=== PATIENT | male | born 1955 | race Caucasian/White ===

== ENCOUNTER 2024-07-23 19:05 | Inpatient (IN) | payer MEDICARE, OTHER ==
--- NOTE | 2024-07-23 19:22 | ED ---
General Adult HPI - General Chief complaint: Shortness of Breath Stated complaint: SOB Time Seen by Provider: 07/23/24 19:09 Source: patient Mode of arrival: EMS Limitations: no limitations - History of Present Illness Initial comments: Patient presents to the ED by ambulance complaining of having progressive dyspnea over the past week and a half or so. Patient has a history of COPD, and he reports being on 2 to 4 L of home O2. Patient states that he moved here from [place] about 4 months ago, and he states that he has not seen a primary care provider or junior loan processor since moving here. Patient states that he has been using his albuterol inhaler without much relief. Patient admits to having a productive cough. EMS reports giving the patient a single DuoNeb treatment en route to the ED. EMS reports that the patient did not tolerate their attempt to put the patient on CPAP. Patient denies having any pain, fever or chills, headache, focal neuro deficit, chest pain, hemoptysis, palpitations, dizziness, abdominal pain, nausea or vomiting, bloody or melanotic stool, dysuria or urinary symptoms, decreased urine output, leg or calf swelling or pain, or any other symptoms or complaints. Patient states that he is a former smoker. Patient denies any illicit drug use. - Related Data Allergies Allergy/AdvReac Type Severity Reaction Status Date / Time No Known Allergies Allergy Verified 07/23/24 19:18 Review of Systems ROS Statement: Those systems with pertinent positive or pertinent negative responses have been documented in the HPI. ROS Other: All systems not noted in ROS Statement are negative. Past Medical History History of Any Multi-Drug Resistant Organisms: None Reported Smoking Status: Former smoker Past Alcohol Use History: Daily Past Drug Use History: Marijuana General Exam Limitations: no limitations General appearance: alert Head exam: Present: atraumatic Eye exam: Present: normal appearance ENT exam: Present: mucous membranes moist Neck exam: Present: other (Trachea is in midline) Respiratory exam: Present: respiratory distress, wheezes, accessory muscle use, prolonged expiratory. Absent: rales, rhonchi, stridor, chest wall tenderness Cardiovascular Exam: Present: normal rhythm, tachycardia, normal heart sounds, other (Normal radial pulses bilaterally) GI/Abdominal exam: Present: soft. Absent: distended, tenderness, guarding Extremities exam: Present: other (Negative Homans' sign bilaterally). Absent: tenderness, pedal edema, calf tenderness Neurological exam: Present: alert, oriented X3 Skin exam: Present: warm, dry, normal color Course Vital Signs 07/23/24 07/23/24 07/23/24 19:18 19:28 19:42 Temperature 97.6 F Pulse Rate 125 H 129 H 126 H Respiratory 24 Rate Blood Pressure 100/69 O2 Sat by Pulse 94 L Oximetry Fraction of Inspired Oxygen (FIO2) 07/23/24 19:48 Temperature Pulse Rate Respiratory Rate Blood Pressure O2 Sat by Pulse Oximetry Fraction of 40 Inspired Oxygen (FIO2) - Reevaluation(s) Reevaluation #1: 07/23/24 20:53 Case, H&P, test results and ED/EMS management thus far were discussed with Dr. Crawford. He accepts hospital admission. He agrees with pulmonology consultation. He has no further recommendations at this time. 07/23/24 21:02 Patient states that his dyspnea has improved with treatment thus far. Patient appears to be breathing more comfortably now on BiPAP. Patient is aware of his test results, and he agrees with hospital admission at this time. Patient denies development of any new symptoms while in the ED. Patient remains alert. EKG Findings - EKG Comments: EKG Findings:: ED physician interpretation (interpreted by me): Sinus tachycardia, ventricular rate of 133 bpm, no ectopy, normal AL and QRS intervals, normal QT interval, rightward axis, no ST or T wave abnormality Medical Decision Making - Medical Decision Making Was pt. sent in by a medical professional or institution (, PA, CASE SEALER, urgent care, hospital, or [facility]...) When possible be specific @ -No Did you speak to anyone other than the patient for history (EMS, parent, family, police, friend...)? What history was obtained from this source @ -History was also obtained from EMS. Did you review nursing and triage notes (agree or disagree)? Why? @ -I reviewed and agree with nursing and triage notes Were old charts reviewed (outside hosp., previous admission, EMS record, old EKG, old radiological studies, urgent care reports/EKG's, [facility] records)? Report findings @ -No old charts were reviewed Differential Diagnosis (chest pain, altered mental status, abdominal pain women, abdominal pain men, vaginal bleeding, weakness, fever, dyspnea, syncope, headache, dizziness, GI bleed, back pain, seizure, CVA, palpatations, mental health, musculoskeletal)? @ -Differential Dyspnea: Coronary syndrome, arrhythmia, tamponade, asthma, COPD, pneumonia, pneumothorax, pleural effusion, anemia, neuromuscular, this is not meant to be an all-inc lusive list. EKG interpreted by me (3pts min.). @ -As above X-rays interpreted by me (1pt min.). @ -Chest x-ray was reviewed myself and shows findings of COPD, but no acute cardiopulmonary process. I agree with the radiologist's interpretation as above. CT interpreted by me (1pt min.). @ -None done U/S interpreted by me (1pt. min.). @ -None done What testing was considered but not performed or refused? (CT, X-rays, U/S, labs)? Why? @ -None What meds were considered but not given or refused? Why? @ -None Did you discuss the management of the patient with other professionals (professionals i.e. , PA, CASE SEALER, lab, RT, psych nurse, social science instructor, vp platforms, teacher, escrow officer, case finishing machine adjuster)? Give summary @ -As above. Was smoking cessation discussed for >3mins.? @ -No Was critical care preformed (if so, how long)? @ -Yes, 40 minutes. Were there social determinants of health that impacted care today? How? (Homelessness, low income, unemployed, alcoholism, drug addiction, transport ation, low edu. Level, literacy, decrease access to med. care, custodial, rehab)? @ -No Was there de-escalation of care discussed even if they declined (Discuss DNR or withdrawal of care, Hospice)? DNR status @ -No What co-morbidities impacted this encounter? (DM, HTN, Smoking, COPD, CAD, Cancer, CVA, ARF, Chemo, Hep., AIDS, mental health diagnosis, sleep apnea, morbid obesity)? @ -COPD Was patient admitted / discharged? Hospital course, mention meds given and route, prescriptions, significant lab abnormalities, going to OR and other pertinent info. @ -Patient's air movement and respiratory distress has improved with neb treatments in the ED, as well as BiPAP ventilatory support. Patient's labs demonstrate mild hyponatremia, as well as hyperkalemia, which have been treated with IV normal saline and Lokelma. Patient's chest x-ray shows no acute cardiopulmonary disease/process, but demonstrates findings of COPD. Patient has been given multiple DuoNeb treatments, as well as IV Solu-Medrol. Patient has also been treated with IV azithromycin for COPD exacerbation. Case was discussed with Dr. Crawford (hospitalist), and he has accepted hospital admission. A pulmonology consultation order was placed. Will admit the patient to the hospital at this time. Patient agrees with this plan. Undiagnosed new problem with uncertain prognosis? @ -No Drug Therapy requiring intensive monitoring for toxicity (Heparin, Nitro, Insulin, Cardizem)? @ -No Were any procedures done? @ -No Diagnosis/symptom? @ -COPD exacerbation Acute, or Chronic, or Acute on Chronic? @ -Acute on chronic Uncomplicated (without systemic symptoms) or Complicated (systemic symptoms)? @ -Default Side effects of treatment? @ -No Exacerbation, Progression, or Severe Exacerbation? @ -No Poses a threat to life or bodily function? How? (Chest pain, [place], NH, pneumonia, PE, COPD, DKA, ARF, appy, cholecystitis, CVA, Diverticulitis, Homicidal, Suicidal, threat to staff... and all critical care pts) @ -Possibly Diagnosis/symptom? @ -Hyperkalemia and hyponatremia Acute, or Chronic, or Acute on Chronic? @ -Default Uncomplicated (without systemic symptoms) or Complicated (systemic symptoms)? @ -Default Side effects of treatment? @ -None Exacerbation, Progression, or Severe Exacerbation] @ -No Poses a threat to life or bodily function? @ -No - Lab Data Result diagrams: 07/23/24 19:30 07/23/24 19:30 Lab Results 07/23/24 07/23/24 07/23/24 Range/Units 19:30 19: 19: WBC 12.6 H (3.8-10.6) k/uL RBC 5.06 (4.30-5.90) m/uL Hgb 16.3 (13.0-17.5) gm/dL Hct 50.4 (39.0-53.0) % MCV 99.6 (80.0-100.0) fL MCH 32.2 (25.0-35.0) pg MCHC 32.3 (31.0-37.0) g/dL RDW 13.4 (11.5-15.5) % Plt Count 262 (150-450) k/uL MPV 8.4 Neutrophils % 61 % Lymphocytes % 27 % Monocytes % 6 % Eosinophils % 3 % Basophils % 0 % Neutrophils # 7.6 (1.3-7.7) k/uL Lymphocytes # 3.4 (1.0-4.8) k/uL Monocytes # 0.8 (0-1.0) k/uL Eosinophils # 0.4 (0-0.7) k/uL Basophils # 0.0 (0-0.2) k/uL PT 10.7 (10.0-12.5) sec INR 1.0 (<1.2) APTT 22.6 (22.0-30.0) sec Sodium 129 L (137-145) mmol/L Potassium 5.8 H (3.5-5.1) mmol/L Chloride 91 L (98-107) mmol/L Carbon Dioxide 18 L (22-30) mmol/L Anion Gap 20 mmol/L BUN 13 (9-20) mg/dL Creatinine 0.61 L (0.66-1.25) mg/dL Est GFR (CKD-EPI)AfAm >90 (>60 ml/min/1.73 sqM) Est GFR (CKD-EPI)NonAf >90 (>60 ml/min/1.73 sqM) Glucose 100 H (74-99) mg/dL Plasma Lactic Acid Suleman (0.7-2.0) mmol/L Calcium 9.6 (8.4-10.2) mg/dL Total Bilirubin 2.0 H (0.2-1.3) mg/dL AST 80 H (17-59) U/L ALT 29 (4-49) U/L Alkaline Phosphatase 115 (38-126) U/L Troponin I (0.000-0.034) ng/mL NT-Pro-B Natriuret Pep 1370 pg/mL Total Protein 8.6 H (6.3-8.2) g/dL Albumin 4.9 (3.5-5.0) g/dL Influenza Type A (PCR) (Not Detectd) Influenza Type B (PCR) (Not Detectd) RSV (PCR) (Not Detectd) SARS-CoV-2 (PCR) (Not Detectd) 07/23/24 07/23/24 07/23/24 Range/Units 19:30 19:30 19:30 WBC (3.8-10.6) k/uL RBC (4.30-5.90) m/uL Hgb (13.0-17.5) gm/dL Hct (39.0-53.0) % MCV (80.0-100.0) fL MCH (25.0-35.0) pg MCHC (31.0-37.0) g/dL RDW (11.5-15.5) % Plt Count (150-450) k/uL MPV Neutrophils % % Lymphocytes % % Monocytes % % Eosinophils % % Basophils % % Neutrophils # (1.3-7.7) k/uL Lymphocytes # (1.0-4.8) k/uL Monocytes # (0-1.0) k/uL Eosinophils # (0-0.7) k/uL Basophils # (0-0.2) k/uL PT (10.0-12.5) sec INR (<1.2) APTT (22.0-30.0) sec Sodium (137-145) mmol/L Potassium (3.5-5.1) mmol/L Chloride (98-107) mmol/L Carbon Dioxide (22-30) mmol/L Anion Gap mmol/L BUN (9-20) mg/dL Creatinine (0.66-1.25) mg/dL Est GFR (CKD-EPI)AfAm (>60 ml/min/1.73 sqM) Est GFR (CKD-EPI)NonAf (>60 ml/min/1.73 sqM) Glucose (74-99) mg/dL Plasma Lactic Acid Suleman 3.0 H* (0.7-2.0) mmol/L Calcium (8.4-10.2) mg/dL Total Bilirubin (0.2-1.3) mg/dL AST (17-59) U/L ALT (4-49) U/L Alkaline Phosphatase (38-126) U/L Troponin I <0.012 (0.000-0.034) ng/mL NT-Pro-B Natriuret Pep pg/mL Total Protein (6.3-8.2) g/dL Albumin (3.5-5.0) g/dL Influenza Type A (PCR) Not Detected (Not Detectd) Influenza Type B (PCR) Not Detected (Not Detectd) RSV (PCR) Not Detected (Not Detectd) SARS-CoV-2 (PCR) Not Detected (Not Detectd) - Radiology Data Chest x-ray: 1. No acute cardiopulmonary disease process. 2. COPD changes. Critical Care Time Critical Care Time: Yes Total Critical Care Time: 40 Disposition Clinical Impression: COPD exacerbation, Respiratory distress, Hyperkalemia, Hyponatremia Disposition: ADMITTED IP TO THIS HOSP Condition: Stable Is patient prescribed a controlled substance at d/c from ED?: No Referrals: None,Stated [Primary Care Provider] - 1-2 days Time of Disposition: 20:54
[2024-07-23] MEDS: LORazepam 2 MG/ML INJ IV STA (19:25)
[2024-07-23] MEDS: IPRATROPIUM-ALBUTEROL 3 ML NEB INHALATION STA ×2 (19:26)
[2024-07-23] MEDS: methylPREDNISolone SOD SUCCI 125 MG/2 ML VIAL IV STA (19:30)
--- NOTE | 2024-07-23 19:41 | XR ---
EXAMINATION TYPE: XR chest 1V portable DATE OF EXAM: 07/23/2024 7:36 PM COMPARISON: None TECHNIQUE: XR chest 1V portable Portable AP radiograph of the chest. CLINICAL INDICATION:Male, 68 years old with history of Dyspnea; FINDINGS: Lungs/Pleura: Hyperinflation. No pleural effusion or pneumothorax. Left apical pleural-parenchymal sc arring. Pulmonary vascularity: Unremarkable. Heart/mediastinum: Cardiomediastinal silhouette is unremarkable. Atherosclerotic calcifications are seen in the aorta. Musculoskeletal: No acute osseous pathology. Remote healed right-sided rib fractures. IMPRESSION: 1. No acute cardiopulmonary disease process. 2. COPD changes. [facility], , 07/23/2024 7:38 PM
[2024-07-23 20:05] LABS: Basophils % (A) 0 %; Eosinophils # (A) 0.4 k/uL (0-0.7); Eosinophils % (A) 3 %; HCT 50.4 % (39.0-53.0); HGB 16.3 gm/dL (13.0-17.5); Lymphocytes # (A) 3.4 k/uL (1.0-4.8); Lymphocytes % (A) 27 %; MCH 32.2 pg (25.0-35.0); MCHC 32.3 g/dL (31.0-37.0); MCV 99.6 fL (80.0-100.0); Mean Platelet Volume 8.4; Monocytes # (A) 0.8 k/uL (0-1.0); Monocytes % (A) 6 %; Neutrophils # (A) 7.6 k/uL (1.3-7.7); Neutrophils % (A) 61 %; Platelet Count 262 k/uL (150-450); RBC 5.06 m/uL (4.30-5.90); RDW 13.4 % (11.5-15.5); WBC 12.6 k/uL (3.8-10.6)
[2024-07-23 20:06] LABS: ALT 29 U/L (4-49); AST 80 U/L (17-59); African American GFR (CKD) >90 (>60 ml/min/1.73 sqM); Albumin 4.9 g/dL (3.5-5.0); Alkaline Phosphatase 115 U/L (38-126); Anion Gap 20 mmol/L; Blood Urea Nitrogen 13 mg/dL (9-20); Calcium 9.6 mg/dL (8.4-10.2); Carbon Dioxide 18 mmol/L (22-30); Chloride 91 mmol/L (98-107); Glucose 100 mg/dL (74-99); Non-African American GFR(CKD) >90 (>60 ml/min/1.73 sqM); Sodium 129 mmol/L (137-145); Total Protein 8.6 g/dL (6.3-8.2)
[2024-07-23 20:07] LABS: Partial Thromboplastin Time 22.6 sec (22.0-30.0); Prothrombin Time 10.7 sec (10.0-12.5)
[2024-07-23 20:11] LABS: NT-Pro-B-Type Natriuretic Pept 1370 pg/mL; Potassium 5.8 mmol/L (3.5-5.1)
[2024-07-23 20:33] LABS: Influenza A Not Detected (Not Detectd); Influenza B Not Detected (Not Detectd); RSV Not Detected (Not Detectd)
[2024-07-23] MEDS ORDERED: NALOXONE 0.4 MG/ML 1 ML VIAL IV PRN (20:54)
[2024-07-23] MEDS: SODIUM CHLORIDE 0.9% 1,000 ML IV SCH (21:04)
[2024-07-23] MEDS: SODIUM CHLORIDE 0.9% 1,000 ML IV ONE (21:04)
[2024-07-23] MEDS: AZITHROMYCIN 500 MG in SODIUM CHLORIDE 0.9% 250 ML IVPB STA (21:19)
[2024-07-23] MEDS: ALBUTEROL NEBULIZED 2.5 MG/3 ML INHALATION SCH (23:06)
[2024-07-23] MEDS: SODIUM ZIRCONIUM CYCLOSILICATE 10 GM PACKET PO ONE (23:20)
[2024-07-23 23:22] LABS: VBG PH 7.24 (7.31-7.41)
--- NOTE | 2024-07-24 00:54 | P.HPIM ---
History of Present Illness H&P Date: 07/23/24 Chief Complaint: Shortness of breath 68-year-old male patient presents to the ED by ambulance complaining of having progressive dyspnea over the past week and a half or so. Patient has a history of COPD, and he reports being on 2 to 4 L of home O2. Patient states that he m patsy here from [place] about 4 months ago, and he states that he has not seen a primary care provider or curriculum consultant since moving here. Patient states that he has been using his albuterol inhaler without much relief. Patient admits to having a productive cough. EMS reports giving the patient a single DuoNeb treatment en route to the ED. EMS reports that the patient did not tolerate their attempt to put the patient on CPAP. Patient denies having any pain, fever or chills, headache, focal neuro deficit, chest pain, hemoptysis, palpitations, dizziness, abdominal pain, nausea or vomiting, bloody or melanotic stool, dysuria or urinary symptoms, decreased urine output, leg or calf swelling or pain, or any other symptoms or complaints. Patient states that he is a former smoker. Patient denies any illicit drug use. Blood work completed in ED reveals a WBC of 12.6, hemoglobin of 16.3 and p latelet count of 262, sodium 129, potassium 4.8, BUNs/creatinine of 13/0.61 troponin of less than 0.012, BNP of 1370, lactic acid of 3.0 Viral screen is negative for influenza, RSV and COVID-19 Chest x-ray is negative for any acute cardiopulmonary process Review of Systems REVIEW OF SYSTEMS: CONSTITUTIONAL: No fever, no malaise, no fatigue. HEENT: No recent visual problems or hearing problems. Denied any sore throat. CARDIOVASCULAR: No chest pain, orthopnea, PND, no palpitations, no syncope. PULMONARY: No shortness of breath, no cough, no hemoptysis. GASTROINTESTINAL: No diarrhea, no nausea, no vomiting, no abdominal pain. NEUROLOGICAL: No headaches, no weakness, no numbness. HEMATOLOGICAL: Denies any bleeding or petechiae. GENITOURINARY: Denies any burning micturition, frequency, or urgency. MUSCULOSKELETAL/RHEUMATOLOGICAL: Denies any joint pain, swelling, or any muscle pain. ENDOCRINE: Denies any polyuria or polydipsia. The rest of the 14-point review of systems is negative. Past Medical History History of Any Multi-Drug Resistant Organisms: None Reported Smoking Status: Former smoker Past Alcohol Use History: Daily Past Drug Use History: Marijuana Medications and Allergies Allergies Allergy/AdvReac Type Severity Reaction Status Date / Time No Known Allergies Allergy Verified 07/23/24 19:18 Physical Exam Vitals: Vital Signs Temp Pulse Resp BP Pulse Ox FiO2 07/23/24 19:48 40 07/23/24 19:42 126 H 07/23/24 19:28 129 H 07/23/24 19:18 97.6 F 125 H 24 100/69 94 L Intake and Output 07/23/24 07/23/24 07/23/24 06:59 14:59 22:59 Other: Weight 52.617 kg General appearance: alert Head exam: Present: atraumatic Eye exam: Present: normal appearance ENT exam: Present: mucous membranes moist Neck exam: Present: other (Trachea is in midline) Respiratory exam: Present: respiratory distress, wheezes, accessory muscle use, prolonged expiratory. Absent: rales, rhonchi, stridor, chest wall tenderness Cardiovascular Exam: Present: normal rhythm, tachycardia, normal heart sounds, other (Normal radial pulses bilaterally) GI/Abdominal exam: Present: soft. Absent: distended, tenderness, guarding Extremities exam: Present: other (Negative Homans' sign bilaterally). Absent: tenderness, pedal edema, calf tenderness Neurological exam: Present: alert, oriented X3 Skin exam: Present: warm, dry, normal color Results CBC & Chem 7: 07/23/24 19:30 07/23/24 19:30 Labs: Abnormal Lab Results - Last 24 Hours (Table) 07/23/24 07/23/24 07/23/24 Range/Units 19:30 19:30 19:30 WBC 12.6 H (3.8-10.6) k/uL Sodium 129 L (137-145) mmol/L Potassium 5.8 H (3.5-5.1) mmol/L Chloride 91 L (98-107) mmol/L Carbon Dioxide 18 L (22-30) mmol/L Creatinine 0.61 L (0.66-1.25) mg/dL Glucose 100 H (74-99) mg/dL Plasma Lactic Acid Suleman 3.0 H* (0.7-2.0) mmol/L Total Bilirubin 2.0 H (0.2-1.3) mg/dL AST 80 H (17-59) U/L Total Protein 8.6 H (6.3-8.2) g/dL Assessment and Plan Assessment: 1. Acute hypoxic respiratory failure -Patient was initially placed on BiPAP with FiO2 of 40% -We will plan to titrate or wean as able 2. Acute exacerbation COPD; patient received Solu-Medrol 125 mg in ED -We will continue Solu-Medrol 60 mg IV every 6 hours; DuoNeb nebulizer treat ments 4 times daily and as needed -Azithromycin 500 mg IV x 1 in ED; we will continue with 250 mg daily close x 4 -Patient does not have formal diagnosis of COPD -We will consult pulm 3. Hyperkalemia; initial blood work reveals a potassium of 5.8; patient received Lokelma 10 g p.o. x 1; will repeat electrolytes and make further adjustments 4. Hyponatremia; sodium of 129; patient is initiated on IV fluids normal saline at rate of 75 cc an hour; we will monitor electrolytes and make recommendations 5. Elevated BNP; chest x-ray does not reveal any pulmonary vascular congestion; patient is not fluid overloaded; we will monitor at this time DVT prophylaxis; SCDs/subcu heparin CODE STATUS; full code
[2024-07-24 06:38] LABS: Basophils % (A) 0 %; Eosinophils % (A) 1 %; HGB 13.5 gm/dL (13.0-17.5); Lymphocytes # (A) 0.8 k/uL (1.0-4.8); Lymphocytes % (A) 15 %; MCH 32.2 pg (25.0-35.0); MCV 97.5 fL (80.0-100.0); Monocytes # (A) 0.2 k/uL (0-1.0); Monocytes % (A) 3 %; Neutrophils # (A) 4.3 k/uL (1.3-7.7); Neutrophils % (A) 81 %; Platelet Count 220 k/uL (150-450); RDW 13.1 % (11.5-15.5); WBC 5.3 k/uL (3.8-10.6)
[2024-07-24 06:49] LABS: Glucose 136 mg/dL (74-99); Total Protein 6.3 g/dL (6.3-8.2)
[2024-07-24 06:51] LABS: ALT 22 U/L (4-49); AST 40 U/L (17-59); African American GFR (CKD) >90 (>60 ml/min/1.73 sqM); Albumin 3.5 g/dL (3.5-5.0); Alkaline Phosphatase 84 U/L (38-126); Anion Gap 14 mmol/L; Blood Urea Nitrogen 17 mg/dL (9-20); Calcium 8.4 mg/dL (8.4-10.2); Carbon Dioxide 20 mmol/L (22-30); Chloride 97 mmol/L (98-107); Non-African American GFR(CKD) >90 (>60 ml/min/1.73 sqM); Potassium 4.7 mmol/L (3.5-5.1); Sodium 131 mmol/L (137-145); Total Bilirubin 0.7 mg/dL (0.2-1.3)
[2024-07-24] MEDS: HEPARIN SODIUM,PORCINE 5,000 UNIT/ML 1 ML VIAL SQ SCH (08:24)
[2024-07-24] MEDS: methylPREDNISolone SOD SUCCI 125 MG/2 ML VIAL IV SCH (08:24)
[2024-07-24] MEDS ORDERED: IPRATROPIUM-ALBUTEROL 3 ML NEB INHALATION PRN (08:39)
--- NOTE | 2024-07-24 11:53 | P.CNPUL ---
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 He does have a history of severe oxygen dependent chronic obstructive pulmonary disease and was following with a polymerization kettle operator there. He was maintained on Breo, Incruse, albuterol in the outpatient setting. He has smoked for over 50 years but quit 5 years ago. He is on no other home medications. He presented here to the emergency room yesterday with a 2 to 3-day history of increasing shortness of breath, cough and congestion. He initially was quite hypoxemic requiring BiPAP 10/5 and 40% FiO2. White count 5.3. Hemoglobin 13.5. Platelets 220. Sodium 131. Potassium 4.7. Bicarb 20. BUN 17. Creatinine 0.68. Glucose 136. Viral screen was negative. Troponin negative. proBNP 1370. Chest x-ray shows no acute cardiopulmonary process. Evidence of COPD. He is seen today in consultation in the emergency department. He is currently sitting up on a stretcher. Awake and alert. He is dyspneic with conversation. Dyspneic with minimal exertion. Sitting in a tripod position. Currently on oxygen at 2 L/min per nasal cannula. He is afebrile. Hemodynamically stable. Review of Systems REVIEW OF SYSTEMS: CONSTITUTIONAL: Denies any recent significant weight loss or weight gain. EYES: Denies change in vision. EARS, NOSE, MOUTH, THROAT: Denies headaches, denies sore throat. CARDIOVASCULAR: Denies chest pain, palpitations or syncopal episodes. RESPIRATORY: Positive for shortness of breath, cough, congestion no hemoptysis. GASTROINTESTINAL: Denies change in appetite, denies abdominal pain GENITOURINARY: Denies hematuria, denies infections. MUSKULOSKELETAL: Denies pain, denies swelling. INTEGUMENTARY: Denies rash, denies eczema. NEUROLOGICAL: Denies recent memory loss, no recent seizure activity. PSYCHIATRIC: Denies anxiety, denies depression. HEMATOLOGIC/LYMPHATIC: Denies anemia, denies enlarged lymph nodes. Past Medical History History of Any Multi-Drug Resistant Organisms: None Reported Smoking Status: Former smoker Past Alcohol Use History: Daily Past Drug Use History: Marijuana Medications and Allergies Home Medications Medication Instructions Recorded Confirmed Type Albuterol Inhaler [Ventolin Hfa 2 puff INHALATION RT-QID PRN 07/24/24 07/24/24 History Inhaler] Allergies Allergy/AdvReac Type Severity Reaction Status Date / Time No Known Allergies Allergy Verified 07/24/24 08:17 Physical Exam Vitals: Vital Signs Temp Pulse Pulse Resp BP BP Pulse Ox 07/24/24 09:38 109 H 07/24/24 09:26 105 H 07/24/24 08:00 98.1 F 101 H 16 115/64 98 07/24/24 05:05 95 18 111/63 98 07/24/24 03:52 105 H 07/24/24 03:41 104 H 07/24/24 03:00 98 18 95/56 97 07/24/24 01:24 101 H 18 105/62 98 07/24/24 00:30 105 H 20 106/64 98 07/23/24 23:18 97 07/23/24 23:17 117 H 07/23/24 23:07 116 H 07/23/24 22:00 118 H 22 119/71 99 07/23/24 21:00 129 H 24 99/73 100 07/23/24 19:48 07/23/24 19:42 126 H 07/23/24 19:28 129 H 07/23/24 19:18 97.6 F 125 H 24 100/69 94 L FiO2 07/24/24 09:38 07/24/24 09:26 07/24/24 08:00 07/24/24 05:05 07/24/24 03:52 07/24/24 03:41 07/24/24 03:00 07/24/24 01:24 07/24/24 00:30 07/23/24 23:18 07/23/24 23:17 07/23/24 23:07 07/23/24 22:00 07/23/24 21:00 07/23/24 19:48 40 07/23/24 19:42 07/23/24 19:28 07/23/24 19:18 Intake and Output 07/23/24 07/24/24 07/24/24 22:59 06:59 14:59 Other: Weight 52.617 kg GENERAL EXAM: Alert, pleasant, very thin 68-year-old male, appears older than stated age, on 2 L nasal cannula, fairly comfortable in no apparent distress. HEAD: Normocephalic. EYES: Normal reaction of pupils, equal size. NOSE: Clear with pink turbinates. THROAT: No erythema or exudates. NECK: No masses, no JVD. CHEST: No chest wall deformity. LUNGS: Equal air entry with bilateral scattered rhonchi, wheezing, diminished. CVS: S1 and S2 normal with no audible murmur, regular rhythm. ABDOMEN: No hepatosplenomegaly, normal bowel sounds, no guarding or rigidity. SPINE: No scoliosis or deformity SKIN: No rashes CENTRAL NERVOUS SYSTEM: No focal deficits, tone is normal in all 4 extremities. EXTREMITIES: There is no peripheral edema. No clubbing, no cyanosis. Peripheral pulses are intact. Results - Laboratory Findings CBC and BMP: 07/24/24 06:24 07/24/24 06:24 PT/INR, D-dimer PT 10.7 sec (10.0-12.5) 07/23/24 19:30 INR 1.0 (<1.2) 07/23/24 19:30 Abnormal lab findings: Abnormal Labs 07/23/24 07/23/24 07/23/24 19:30 19:30 19:30 WBC 12.6 H RBC Lymphocytes # VBG pH VBG HCO3 Sodium 129 L Potassium 5.8 H Chloride 91 L Carbon Dioxide 18 L Creatinine 0.61 L Glucose 100 H Plasma Lactic Acid Suleman 3.0 H* Total Bilirubin 2.0 H AST 80 H Total Protein 8.6 H 07/23/24 07/24/24 07/24/24 23:00 06:24 06:24 WBC RBC 4.20 L Lymphocytes # 0.8 L VBG pH 7.24 L VBG HCO3 16 L Sodium 131 L Potassium Chloride 97 L Carbon Dioxide 20 L Creatinine Glucose 136 H Plasma Lactic Acid Suleman Total Bilirubin AST Total Protein - Diagnostic Findings Chest x-ray: image reviewed Assessment and Plan Assessment: Acute on chronic hypoxemic respiratory failure secondary to an acute exacerbation of chronic obstructive pulmonary disease requiring BiPAP support History of oxygen dependent chronic obstructive pulmonary disease maintained on oxygen at 3 L/min per nasal cannula History of 50 years chronic tobacco dependence however quit about 5 years ago Recently moved here from [facility], no health care providers obtained thus far Plan: The patient was seen and evaluated Chest x-ray, labs and medications reviewed Currently on 2 L nasal cannula Utilize BiPAP 10/5 and 40% FiO2 as needed Initiate DuoNeb inhalations Initiate Pulmicort and Perforomist inhalations Initiate Solu-Medrol 60 mg every 6 hours Titrate the FiO2 as tolerated Heparin for DVT prophylaxis Encouraged to obtain a primary care provider Encouraged to follow-up in our office post discharge We will continue to follow and make further recommendations based on his clinical status I have personally seen and examined the patient, performed the documentation and the assessment and plan as written. Number of minutes spent on the visit: 20 Dictation was produced using [employer] dictation software. Please excuse any grammatical, word or spelling errors.
--- NOTE | 2024-07-24 12:15 | P.PN ---
Subjective Progress Note Date: 07/24/24 68-year-old male patient presents to the ED by ambulance complaining of having progressive dyspnea over the past week and a half or so. Patient has a history of COPD, and he reports being on 2 to 4 L of home O2. Patient states that he moved here from [place] about 4 months ago, and he states that he has not seen a primary care provider or automated manufacturing instructor since moving here. Patient states that he has been using his albuterol inhaler without much relief. Patient admits to having a productive cough. EMS reports giving the patient a single DuoNeb treatment en route to the ED. EMS reports that the patient did not tolerate their attempt to put the patient on CPAP. Patient denies having any pain, fever or chills, headache, focal neuro deficit, chest pain, hemoptysis, palpitations, dizziness, abdominal pain, nausea or vomiting, bloody or melanotic stool, dysuria or urinary symptoms, decreased urine output, leg or calf swelling or pain, or any other symptoms or complaints. Patient states that he is a former smoker. Patient denies any illicit drug use. Blood work completed in ED reveals a WBC of 12.6, hemoglobin of 16.3 and platelet count of 262, sodium 129, potassium 4.8, BUNs/creatinine of 13/0.61 troponin of less than 0.012, BNP of 1370, lactic acid of 3.0 Viral screen is negative for influenza, RSV and COVID-19 Chest x-ray is negative for any acute cardiopulmonary process Objective - Vital Signs Vital signs: Vital Signs Temp 97.6 F 07/23/24 19:18 Pulse 105 H 07/24/24 00:30 Resp 20 07/24/24 00:30 BP 106/64 07/24/24 00:30 Pulse Ox 98 07/24/24 00:30 FiO2 40 07/23/24 19:48 Intake & Output 07/23/24 07/23/24 07/24/24 06:59 18:59 06:59 Weight 52.617 kg - Exam Head exam: Present: atraumatic Eye exam: Present: normal appearance ENT exam: Present: mucous membranes moist Neck exam: Present: other (Trachea is in midline) Respiratory exam: Present: respiratory distress, wheezes, accessory muscle use, prolonged expiratory. Absent: rales, rhonchi, stridor, chest wall tenderness Cardiovascular Exam: Present: normal rhythm, tachycardia, normal heart sounds, other (Normal radial pulses bilaterally) GI/Abdominal exam: Present: soft. Absent: distended, tenderness, guarding Extremities exam: Present: other (Negative Homans' sign bilaterally). Absent: tenderness, pedal edema, calf tenderness Neurological exam: Present: alert, oriented X3 Skin exam: Present: warm, dry, normal color - Labs CBC & Chem 7: 07/23/24 19:30 07/23/24 19:30 Labs: Abnormal Lab Results - Last 24 Hours (Table) 07/23/24 07/23/24 07/23/24 Range/Units 19:30 19:30 19:30 WBC 12.6 H (3.8-10.6) k/uL VBG pH (7.31-7.41) VBG HCO3 (24-28) mmol/L Sodium 129 L (137-145) mmol/L Potassium 5.8 H (3.5-5.1) mmol/L Chloride 91 L (98-107) mmol/L Carbon Dioxide 18 L (22-30) mmol/L Creatinine 0.61 L (0.66-1.25) mg/dL Glucose 100 H (74-99) mg/dL Plasma Lactic Acid Suleman 3.0 H* (0.7-2.0) mmol/L Total Bilirubin 2.0 H (0.2-1.3) mg/dL AST 80 H (17-59) U/L Total Protein 8.6 H (6.3-8.2) g/dL 07/23/24 Range/Units 23:00 WBC (3.8-10.6) k/uL VBG pH 7.24 L (7.31-7.41) VBG HCO3 16 L (24-28) mmol/L Sodium (137-145) mmol/L Potassium (3.5-5.1) mmol/L Chloride (98-107) mmol/L Carbon Dioxide (22-30) mmol/L Creatinine (0.66-1.25) mg/dL Glucose (74-99) mg/dL Plasma Lactic Acid Suleman (0.7-2.0) mmol/L Total Bilirubin (0.2-1.3) mg/dL AST (17-59) U/L Total Protein (6.3-8.2) g/dL Assessment and Plan Assessment: 1. Acute hypoxic respiratory failure -Patient was initially placed on BiPAP with FiO2 of 40% -We will plan to titrate or wean as able 2. Acute exacerbation COPD; patient received Solu-Medrol 125 mg in ED -We will continue Solu-Medrol 60 mg IV every 6 hours; DuoNeb nebulizer treatments 4 times daily and as needed -Azithromycin 500 mg IV x 1 in ED; we will continue with 250 mg daily close x 4 -Patient does not have formal diagnosis of COPD -We will consult pulm 3. Hyperkalemia; initial blood work reveals a potassium of 5.8; patient received Lokelma 10 g p.o. x 1; will repeat electrolytes and make further adjustments 4. Hyponatremia; sodium of 129; patient is initiated on IV fluids normal saline at rate of 75 cc an hour; we will monitor electrolytes and make recommendations 5. Elevated BNP; chest x-ray does not reveal any pulmonary vascular congestion; patient is not fluid overloaded; we will monitor at this time DVT prophylaxis; SCDs/subcu heparin CODE STATUS; full code
[2024-07-24 15:37] LABS: Glucose,Whole Blood 170 mg/dL (70-110)
[2024-07-24] MEDS: FORMOTEROL FUMARATE 20 MCG/2 ML NEBU INHALATION SCH (19:50)
[2024-07-24] MEDS: BUDESONIDE 1 MG/2 ML NEBU INHALATION SCH (19:50)
[2024-07-24 20:41] LABS: Glucose,Whole Blood 196 mg/dL (70-110)
[2024-07-25 03:32] LABS: Basophils % (A) 0 %; Eosinophils % (A) 0 %; HCT 37.9 % (39.0-53.0); HGB 12.3 gm/dL (13.0-17.5); Lymphocytes # (A) 0.7 k/uL (1.0-4.8); Lymphocytes % (A) 10 %; MCH 32.3 pg (25.0-35.0); MCHC 32.6 g/dL (31.0-37.0); MCV 99.2 fL (80.0-100.0); Mean Platelet Volume 8.5; Monocytes # (A) 0.2 k/uL (0-1.0); Monocytes % (A) 3 %; Neutrophils # (A) 6.3 k/uL (1.3-7.7); Neutrophils % (A) 86 %; Platelet Count 186 k/uL (150-450); RBC 3.82 m/uL (4.30-5.90); RDW 13.5 % (11.5-15.5); WBC 7.3 k/uL (3.8-10.6)
[2024-07-25 03:59] LABS: African American GFR (CKD) >90 (>60 ml/min/1.73 sqM); Anion Gap 5 mmol/L; Blood Urea Nitrogen 18 mg/dL (9-20); Calcium 8.8 mg/dL (8.4-10.2); Carbon Dioxide 29 mmol/L (22-30); Chloride 96 mmol/L (98-107); Glucose 173 mg/dL (74-99); Magnesium 1.7 mg/dL (1.6-2.3); Non-African American GFR(CKD) >90 (>60 ml/min/1.73 sqM); Potassium 3.7 mmol/L (3.5-5.1); Sodium 130 mmol/L (137-145)
[2024-07-25 06:16] LABS: Glucose,Whole Blood 160 mg/dL (70-110)
[2024-07-25] MEDS: NICOTINE 14MG/24HR PATCH TRANSDERM SCH (08:23)
[2024-07-25 11:05] VITALS: BMI 17.9
--- NOTE | 2024-07-25 14:21 | P.PN ---
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 He was maintained on Breo, Incruse, albuterol in the outpatient setting. He has smoked for over 50 years but quit 5 years ago. He is on no other home medications. He presented here to the emergency room yesterday with a 2 to 3-day history of increasing shortness of breath, cough and congestion. He initially was quite hypoxemic requiring BiPAP 10/5 and 40% FiO2. White count 5.3. Hemoglobin 13.5. Platelets 220. Sodium 131. Potassium 4.7. Bicarb 20. BUN 17. Creatinine 0.68. Glucose 136. Viral screen was negative. Troponin negative. proBNP 1370. Chest x-ray shows no acute cardiopulmonary process. Evidence of COPD. He is seen today in consultation in the emergency department. He is currently sitting up on a stretcher. Awake and alert. He is dyspneic with conversation. Dyspneic with minimal exertion. Sitting in a tripod position. Currently on oxygen at 2 L/min per nasal cannula. He is afe brile. Hemodynamically stable. On 07/25/2024, the patient is being seen for a follow-up. The patient is in the intensive care unit for an acute COPD exacerbation and acute on top of chronic hypoxic respiratory failure. This morning, the patient is calm and comfortable. She is on 2 L of oxygen by nasal cannula. She remains on bronchodilators. She remains on IV Solu-Medrol 60 mg every 8 hours. She is also on a combination of Perforomist and Pulmicort nebulized treatments twice a day. Less short of breath. Clinically improving. No new complaints although the past 24 hours. No signs of any CO2 narcosis. The white cell count of 7.3 with a heme of 12.3 and a platelet count of 186. BUN is 18 with a creatinine of 0.55 and a sodium levels at 130 and a potassium level is at 3.7. Denies having any other specific complaints otherwise for now. Objective - Vital Signs Vital signs: Vital Signs Temp 97.7 F 07/25/24 04:00 Pulse 72 07/25/24 04:29 Resp 20 07/25/24 04:29 BP 125/71 07/25/24 04:00 Pulse Ox 98 07/25/24 04:00 FiO2 40 07/23/24 19:48 Intake & Output 07/24/24 07/25/24 07/25/24 18:59 06:59 18:59 Intake Total 600 Output Total 300 Balance 300 Weight 55.7 kg 53.5 kg Intake: Intake, IV Titration 600 Amount Sodium Chloride 0.9% 1, 600 000 ml @ 75 mls/hr IV . [id number] [facility] Rx#:[id number] Output: Urine 300 Other: Voiding Method Urinal # Voids 1 1 # Bowel Movements 1 - Exam GENERAL EXAM: Alert, pleasant, very thin 68-year-old male, appears older than stated age, on 2 L nasal cannula, fairly comfortable in no apparent distress. HEAD: Normocephalic. EYES: Normal reaction of pupils, equal size. NOSE: Clear with pink turbinates. THROAT: No erythema or exudates. NECK: No masses, no JVD. CHEST: No chest wall deformity. LUNGS: Equal air entry with bilateral scattered rhonchi, wheezing, diminished. CVS: S1 and S2 normal with no audible murmur, regular rhythm. ABDOMEN: No hepatosplenomegaly, normal bowel sounds, no guarding or rigidity. SPINE: No scoliosis or deformity SKIN: No rashes CENTRAL NERVOUS SYSTEM: No focal deficits, tone is normal in all 4 extremities. EXTREMITIES: There is no peripheral edema. No clubbing, no cyanosis. Peripheral pulses are intact. - Labs CBC & Chem 7: 07/25/24 03:10 07/25/24 03:10 Labs: Abnormal Lab Results - Last 24 Hours (Table) 07/24/24 07/24/24 07/25/24 Range/Units 15:33 20:40 03:10 RBC 3.82 L (4.30-5.90) m/uL Hgb 12.3 L (13.0-17.5) gm/dL Hct 37.9 L (39.0-53.0) % Lymphocytes # 0.7 L (1.0-4.8) k/uL Sodium (137-145) mmol/L Chloride (98-107) mmol/L Creatinine (0.66-1.25) mg/dL Glucose (74-99) mg/dL POC Glucose (mg/dL) 170 H 196 H (70-110) mg/dL 07/25/24 07/25/24 Range/Units 03:10 06:14 RBC (4.30-5.90) m/uL Hgb (13.0-17.5) gm/dL Hct (39.0-53.0) % Lymphocytes # (1.0-4.8) k/uL Sodium 130 L (137-145) mmol/L Chloride 96 L (98-107) mmol/L Creatinine 0.55 L (0.66-1.25) mg/dL Glucose 173 H (74-99) mg/dL POC Glucose (mg/dL) 160 H (70-110) mg/dL Assessment and Plan Plan: Acute on chronic hypoxemic respiratory failure secondary to an acute exacerbation of chronic obstructive pulmonary disease, currently off BiPAP and the patient is on 2 L of O2 nasal cannula Acute on chronic shortness of breath, improving History of oxygen dependent chronic obstructive pulmonary disease maintained on oxygen at 2 L/min per nasal cannula History of 50 years chronic tobacco dependence however quit about 5 years ago Recently moved here from [facility], no health care providers obtained thus far Profound weakness and debility Plan: Currently on 2 L nasal cannula Patient currently off the BiPAP Initiate DuoNeb inhalations Initiate Pulmicort and Perforomist inhalations Initiate Solu-Medrol 60 mg every 8 hours Titrate the FiO2 as tolerated Heparin for DVT prophylaxis Patient will be transferred out of the intensive care unit. 12 PT Time with Patient: Greater than 30
--- NOTE | 2024-07-25 16:17 | P.PN ---
Subjective Progress Note Date: 07/25/24 Interval History: 68-year-old male patient presents to the ED by ambulance complaining of having progressive dyspnea over the past week and a half or so. Patient has a history of COPD, and he reports being on 2 to 4 L of home O2. Patient states that he moved here from [place] about 4 months ago, and he states that he has not seen a primary care provider or blood bank attendant since moving here. Patient states that he has been using his albuterol inhaler without much relief. Patient admits to having a productive cough. EMS reports giving the patient a single DuoNeb treatment en route to the ED. EMS reports that the patient did not tolerate their attempt to put the patient on CPAP. Patient denies having any pain, fever or chills, headache, focal neuro deficit, chest pain, hemoptysis, palpitations, dizziness, abdominal pain, nausea or vomiting, bloody or melanotic stool, dysuria or urinary symptoms, decreased urine output, leg or calf swelling or pain, or any other symptoms or complaints. Patient states that he is a former smoker. Patient denies any illicit drug use. Blood work completed in ED reveals a WBC of 12.6, hemoglobin of 16.3 and platelet count of 262, sodium 129, potassium 4.8, BUNs/creatinine of 13/0.61 troponin of less than 0.012, BNP of 1370, lactic acid of 3.0 Viral screen is negative for influenza, RSV and COVID-19 Chest x-ray is negative for any acute cardiopulmonary process 07/25--patient was seen and examined today. Continue complain of shortness of breath, productive cough. On 2 L oxygen. Remains on bronchodilators, IV Solu- Medrol. WBC 7.3, hemoglobin 12.3, platelet 186. BMP unremarkable, sodium 130. Potassium 3.7. Pulmonary following. Assessment and plan: Acute on chronic hypoxic respiratory failure: Acute COPD exacerbation: 2 L oxygen at baseline Former tobacco use: 50 years history, quit 5 years ago Weakness and debility: Presents for shortness of breath, chest x-ray negative for any acute process, admitted for acute COPD exacerbation Required BiPAP initially DuoNebs, Pulmicort, Perforomist inhalers Solu-Medrol Wean off oxygen as tolerated keep oxygen saturation above 90% Pulmonary consulted and following Severe PCM: Nutrition consult, supplements Debility: Weakness: PT/OT consult DVT prophylaxis: Subcutaneous heparin Monitor vital signs and labs Labs and medication were reviewed. Continue same treatment. Further recommendations as per clinical course of the patient PHYSICAL EXAMINATION: GENERAL: The patient is A&O x3, NAD HEENT: EOMI, Sclerae anicteric, Moist Mucous membranes Neck: Supple, Non tender, No JVD PULMONARY: Decreased breath sound bilaterally, bilateral expiratory wheezes. CARDIOVASCULAR: S1, S2 present. No murmurs, rubs, or gallops. ABDOMEN: Soft, nontender, nondistended, normoactive bowel sounds. No guarding or rebound tenderness. MUSCULOSKELETAL: No edema, No cyanosis. No clubbing. Normal ROM. Intact peripheral pulses. NEUROLOGICAL: CN 2-12 grossly intact. No FND Skin: No Rash REVIEW OF SYSTEMS: CONSTITUTIONAL: No fever or chills. CARDIOVASCULAR: No chest pain, palpitations or syncope. PULMONARY: Complains of shortness of breath. GASTROINTESTINAL: No nausea, vomiting, diarrhea, abdominal pain. : No Dysuria, urgency, frequency. Extremities: No edema. NEUROLOGICAL: No headaches, no weakness, or numbness Dictation was produced using [employer] dictation software. please excuse any grammatical, word or spelling errors. Objective - Vital Signs Vital signs: Vital Signs Temp 98 F 07/25/24 14:00 Pulse 74 07/25/24 15:28 Resp 21 07/25/24 14:00 BP 99/48 07/25/24 14:00 Pulse Ox 99 07/25/24 14:00 FiO2 40 07/23/24 19:48 Intake & Output 07/24/24 07/25/24 07/25/24 18:59 06:59 18:59 Intake Total 600 Output Total 300 350 Balance 300 -350 Weight 55.7 kg 53.5 kg 53.5 kg Intake: Intake, IV Titration 600 Amount Sodium Chloride 0.9% 1, 600 000 ml @ 75 mls/hr IV . [id number] [facility] Rx#:[id number] Output: Urine 300 350 Other: Voiding Method Urinal Urinal # Voids 1 1 # Bowel Movements 1 - Labs CBC & Chem 7: 07/25/24 03:10 07/25/24 03:10 Labs: Abnormal Lab Results - Last 24 Hours (Table) 07/24/24 07/25/24 07/25/24 Range/Units 20:40 03:10 03:10 RBC 3.82 L (4.30-5.90) m/uL Hgb 12.3 L (13.0-17.5) gm/dL Hct 37.9 L (39.0-53.0) % Lymphocytes # 0.7 L (1.0-4.8) k/uL Sodium 130 L (137-145) mmol/L Chloride 96 L (98-107) mmol/L Creatinine 0.55 L (0.66-1.25) mg/dL Glucose 173 H (74-99) mg/dL POC Glucose (mg/dL) 196 H (70-110) mg/dL 07/25/24 Range/Units 06:14 RBC (4.30-5.90) m/uL Hgb (13.0-17.5) gm/dL Hct (39.0-53.0) % Lymphocytes # (1.0-4.8) k/uL Sodium (137-145) mmol/L Chloride (98-107) mmol/L Creatinine (0.66-1.25) mg/dL Glucose (74-99) mg/dL POC Glucose (mg/dL) 160 H (70-110) mg/dL
--- NOTE | 2024-07-26 12:50 | P.PN ---
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 He does have a history of severe oxygen dependent chronic obstructive pulmonary disease and was following with a lathe turner there. He was maintained on Breo, Incruse, albuterol in the outpatient setting. He has smoked for over 50 years but quit 5 years ago. He is on no other home medications. He presented here to the emergency room yesterday with a 2 to 3-day history of increasing shortness of breath, cough and congestion. He initially was quite hypoxemic requiring BiPAP 10/5 and 40% FiO2. White count 5.3. Hemoglobin 13.5. Platelets 220. Sodium 131. Potassium 4.7. Bicarb 20. BUN 17. Creatinine 0.68. Glucose 136. Viral screen was negative. Troponin negative. proBNP 1370. Chest x-ray shows no acute cardiopulmonary process. Evidence of COPD. He is seen today in consultation in the emergency department. He is currently sitting up on a stretcher. Awake and alert. He is dyspneic with conversation. Dyspneic with minimal exertion. Sitting in a tripod position. Currently on oxygen at 2 L/min per nasal cannula. He is afe brile. Hemodynamically stable. On 07/25/2024, the patient is being seen for a follow-up. The patient is in the intensive care unit for an acute COPD exacerbation and acute on top of chronic hypoxic respiratory failure. This morning, the patient is calm and comfortable. She is on 2 L of oxygen by nasal cannula. She remains on bronchodilators. She remains on IV Solu-Medrol 60 mg every 8 hours. She is also on a combination of Perforomist and Pulmicort nebulized treatments twice a day. Less short of breath. Clinically improving. No new complaints although the past 24 hours. No signs of any CO2 narcosis. The white cell count of 7.3 with a heme of 12.3 and a platelet count of 186. BUN is 18 with a creatinine of 0.55 and a sodium levels at 130 and a potassium level is at 3.7. Denies having any other specific complaints otherwise for now. On 07/26/2024, the patient is being seen for a follow-up. Doing well. Less bronchospastic and wheezy compared to yesterday, remains on 3 L of oxygen by nasal cannula with a pulse ox of 98%. Remains on DuoNeb updrafts. Remains on a combination of Perforomist and Pulmicort nebulized treatment twice a day and IV Solu-Medrol 60 mg every 6 hours. IV fluids are still running at 75 cc an hour. No new labs are available from today. No altered mentation. No chest pain. Continues to have some limited cough and congestion. Significantly weak and debilitated. Objective - Vital Signs Vital signs: Vital Signs Temp 98 F 07/26/24 02:00 Pulse 86 07/26/24 08:11 Resp 20 07/26/24 04:17 BP 117/60 07/26/24 02:00 Pulse Ox 98 07/26/24 02:00 FiO2 40 07/23/24 19:48 Intake & Output 07/25/24 07/26/24 07/26/24 18:59 06:59 18:59 Intake Total 1275 Output Total 1000 1300 Balance 275 -1300 Weight 53.5 kg Intake: Intake, IV Titration 1275 Amount Sodium Chloride 0.9% 1, 1275 000 ml @ 75 mls/hr IV . [id number] [facility] Rx#:[id number] Output: Urine 1000 1300 Other: Voiding Method Urinal Urinal # Voids 1 # Bowel Movements 1 - Exam GENERAL EXAM: Alert, pleasant, very thin 68-year-old male, appears older than stated age, on 2 L nasal cannula, fairly comfortable in no apparent distress. HEAD: Normocephalic. EYES: Normal reaction of pupils, equal size. NOSE: Clear with pink turbinates. THROAT: No erythema or exudates. NECK: No masses, no JVD. CHEST: No chest wall deformity. LUNGS: Equal air entry with bilateral scattered rhonchi, wheezing, diminished. CVS: S1 and S2 normal with no audible murmur, regular rhythm. ABDOMEN: No hepatosplenomegaly, normal bowel sounds, no guarding or rigidity. SPINE: No scoliosis or deformity SKIN: No rashes CENTRAL NERVOUS SYSTEM: No focal deficits, tone is normal in all 4 extremities. EXTREMITIES: There is no peripheral edema. No clubbing, no cyanosis. Peripheral pulses are intact. - Labs CBC & Chem 7: 07/25/24 03:10 07/25/24 03:10 Assessment and Plan Plan: Acute on chronic hypoxemic respiratory failure secondary to an acute exacerbation of chronic obstructive pulmonary disease, currently off BiPAP and the patient is on 2 L of O2 nasal cannula Acute CF exacerbation, improving Acute on chronic shortness of breath, improving History of oxygen dependent chronic obstructive pulmonary disease maintained on oxygen at 2 L/min per nasal cannula History of 50 years chronic tobacco dependence however quit about 5 years ago Recently moved here from [facility], no health care providers obtained thus far Profound weakness and debility Plan: Clinically improving and will continue same management for now Currently on 2 L nasal cannula, stable oxygenation Patient currently off the BiPAP Continue DuoNeb inhalations Continue Pulmicort and Perforomist inhalations Continue Solu-Medrol 60 mg every 8 hours Titrate the FiO2 as tolerated Heparin for DVT prophylaxis Patient will be transferred out of the intensive care unit.
--- NOTE | 2024-07-26 14:57 | P.PN ---
Subjective Interval History: 68-year-old male patient presents to the ED by ambulance complaining of having progressive dyspnea over the past week and a half or so. Patient has a history of COPD, and he reports being on 2 to 4 L of home O2. Patient states that he moved here from [place] about 4 months ago, and he states that he has not seen a primary care provider or portable irrigation operator since moving here. Patient states that he has been using his albuterol inhaler without much relief. Patient admits to having a productive cough. EMS reports giving the patient a single DuoNeb treatment en route to the ED. EMS reports that the patient did not tolerate thei r attempt to put the patient on CPAP. Patient denies having any pain, fever or chills, headache, focal neuro deficit, chest pain, hemoptysis, palpitations, dizziness, abdominal pain, nausea or vomiting, bloody or melanotic stool, dysuria or urinary symptoms, decreased urine output, leg or calf swelling or pain, or any other symptoms or complaints. Patient states that he is a former smoker. Patient denies any illicit drug use. Blood work completed in ED reveals a WBC of 12.6, hemoglobin of 16.3 and platelet count of 262, sodium 129, potassium 4.8, BUNs/creatinine of 13/0.61 troponin of less than 0.012, BNP of 1370, lactic acid of 3.0 Viral screen is negative for influenza, RSV and COVID-19 Chest x-ray is negative for any acute cardiopulmonary process 07/25--patient was seen and examined today. Continue complain of shortness of breath, productive cough. On 2 L oxygen. Remains on bronchodilators, IV Solu- Medrol. WBC 7.3, hemoglobin 12.3, platelet 186. BMP unremarkable, sodium 130. Potassium 3.7. Pulmonary following. 07/26--patient was seen and examined today. Continue complain of productive cough, shortness of breath. Afebrile, heart rate 107, respiratory 22, blood pressure 131/73, saturating 98% 3 L. Remains on DuoNeb, Perforomist and Pulmicort, IV Solu-Medrol. Pulmonary following. Assessment and plan: Acute on chronic hypoxic respiratory failure: Acute COPD exacerbation: 2 L oxygen at baseline Former tobacco use: 50 years history, quit 5 years ago Weakness and debility: Presents for shortness of breath, chest x-ray negative for any acute process, admitted for acute COPD exacerbation Required BiPAP initially DuoNebs, Pulmicort, Perforomist inhalers Solu-Medrol Wean off oxygen as tolerated keep oxygen saturation above 90% Pulmonary consulted and following Severe PCM: Nutrition consult, supplements Debility: Weakness: PT/OT consult DVT prophylaxis: Subcutaneous heparin Monitor vital signs and labs Labs and medication were reviewed. Continue same treatment. Further recommendations as per clinical course of the patient PHYSICAL EXAMINATION: GENERAL: The patient is A&O x3, NAD HEENT: EOMI, Sclerae anicteric, Moist Mucous membranes Neck: Supple, Non tender, No JVD PULMONARY: Decreased breath sound bilaterally, bilateral expiratory wheezes. CARDIOVASCULAR: S1, S2 present. No murmurs, rubs, or gallops. ABDOMEN: Soft, nontender, nondistended, normoactive bowel sounds. No guarding or rebound tenderness. MUSCULOSKELETAL: No edema, No cyanosis. No clubbing. Normal ROM. Intact peripheral pulses. NEUROLOGICAL: CN 2-12 grossly intact. No FND Skin: No Rash REVIEW OF SYSTEMS: CONSTITUTIONAL: No fever or chills. CARDIOVASCULAR: No chest pain, palpitations or syncope. PULMONARY: Complains of shortness of breath. GASTROINTESTINAL: No nausea, vomiting, diarrhea, abdominal pain. : No Dysuria, urgency, frequency. Extremities: No edema. NEUROLOGICAL: No headaches, no weakness, or numbness Dictation was produced using [employer] dictation software. please excuse any grammatical, word or spelling errors. Objective - Vital Signs Vital signs: Vital Signs Temp 97.9 F 07/26/24 14:14 Pulse 107 H 07/26/24 14:43 Resp 22 07/26/24 14:43 BP 131/73 07/26/24 14:14 Pulse Ox 98 07/26/24 14:14 FiO2 40 07/23/24 19:48 Intake & Output 07/25/24 07/26/24 07/26/24 18:59 06:59 18:59 Intake Total 1275 200 Output Total 1000 1300 525 Balance 275 -1300 -325 Weight 53.5 kg Intake: Intake, IV Titration 1275 Amount Sodium Chloride 0.9% 1, 1275 000 ml @ 10 mls/hr IV . Q24H [facility] Rx#:[id number] Oral 200 Output: Urine 1000 1300 525 Other: Voiding Method Urinal Urinal Urinal # Voids 1 # Bowel Movements 1 - Labs CBC & Chem 7: 07/25/24 03:10 07/25/24 03:10
[2024-07-27] MEDS: IPRATROPIUM-ALBUTEROL 3 ML NEB INHALATION PRN (05:59)
--- NOTE | 2024-07-27 12:54 | P.PN ---
Subjective Interval History: 68-year-old male patient presents to the ED by ambulance complaining of having progressive dyspnea over the past week and a half or so. Patient has a history of COPD, and he reports being on 2 to 4 L of home O2. Patient states that he moved here from [place] about 4 months ago, and he states that he has not seen a primary care provider or holiday detector operator since moving here. Patient states that he has been using his albuterol inhaler without much relief. Patient admits to having a productive cough. EMS reports giving the patient a single DuoNeb treatment en route to the ED. EMS reports that the patient did not tolerate thei r attempt to put the patient on CPAP. Patient denies having any pain, fever or chills, headache, focal neuro deficit, chest pain, hemoptysis, palpitations, dizziness, abdominal pain, nausea or vomiting, bloody or melanotic stool, dysuria or urinary symptoms, decreased urine output, leg or calf swelling or pain, or any other symptoms or complaints. Patient states that he is a former smoker. Patient denies any illicit drug use. Blood work completed in ED reveals a WBC of 12.6, hemoglobin of 16.3 and platelet count of 262, sodium 129, potassium 4.8, BUNs/creatinine of 13/0.61 troponin of less than 0.012, BNP of 1370, lactic acid of 3.0 Viral screen is negative for influenza, RSV and COVID-19 Chest x-ray is negative for any acute cardiopulmonary process 07/25--patient was seen and examined today. Continue complain of shortness of breath, productive cough. On 2 L oxygen. Remains on bronchodilators, IV Solu- Medrol. WBC 7.3, hemoglobin 12.3, platelet 186. BMP unremarkable, sodium 130. Potassium 3.7. Pulmonary following. 07/26--patient was seen and examined today. Continue complain of productive cough, shortness of breath. Afebrile, heart rate 107, respiratory 22, blood pressure 131/73, saturating 98% 3 L. Remains on DuoNeb, Perforomist and Pulmicort, IV Solu-Medrol. Pulmonary following. 07/27--patient was seen and examined today. No issues overnight. Afebrile, heart rate 104, respiratory rate 18, blood pressure 134/69, saturating 99% on 3 L. Continue complain of shortness of breath, worse with exertion, cough. Continues on inhaler/bronchodilator protocol, on Solu-Medrol IV. Pulmonary following. Assessment and plan: Acute on chronic hypoxic respiratory failure: Acute COPD exacerbation: 2 L oxygen at baseline Former tobacco use: 50 years history, quit 5 years ago Weakness and debility: Presents for shortness of breath, chest x-ray negative for any acute process, admitted for acute COPD exacerbation Required BiPAP initially DuoNebs, Pulmicort, Perforomist inhalers Solu-Medrol Wean off oxygen as tolerated keep oxygen saturation above 90% Pulmonary consulted and following Severe PCM: Nutrition consult, supplements Debility: Weakness: PT/OT consulted evaluate for ECF DVT prophylaxis: Subcutaneous heparin Monitor vital signs and labs Labs and medication were reviewed. Continue same treatment. Further recommendations as per clinical course of the patient PHYSICAL EXAMINATION: GENERAL: The patient is A&O x3, NAD HEENT: EOMI, Sclerae anicteric, Moist Mucous membranes Neck: Supple, Non tender, No JVD PULMONARY: Decreased breath sound bilaterally, bilateral expiratory wheezes. CARDIOVASCULAR: S1, S2 present. No murmurs, rubs, or gallops. ABDOMEN: Soft, nontender, nondistended, normoactive bowel sounds. No guarding or rebound tenderness. MUSCULOSKELETAL: No edema, No cyanosis. No clubbing. Normal ROM. Intact peripheral pulses. NEUROLOGICAL: CN 2-12 grossly intact. No FND Skin: No Rash REVIEW OF SYSTEMS: CONSTITUTIONAL: No fever or chills. CARDIOVASCULAR: No chest pain, palpitations or syncope. PULMONARY: Complains of shortness of breath. GASTROINTESTINAL: No nausea, vomiting, diarrhea, abdominal pain. : No Dysuria, urgency, frequency. Extremities: No edema. NEUROLOGICAL: No headaches, no weakness, or numbness Dictation was produced using [employer] dictation software. please excuse any grammatical, word or spelling errors. Objective - Vital Signs Vital signs: Vital Signs Temp 97.8 F 07/27/24 12:41 Pulse 104 H 07/27/24 12:41 Resp 18 07/27/24 12:41 BP 134/69 07/27/24 12:41 Pulse Ox 99 07/27/24 12:41 FiO2 40 07/23/24 19:48 Intake & Output 07/26/24 07/27/24 07/27/24 18:59 06:59 18:59 Intake Total 1520 540 Output Total 525 1500 975 Balance 796 -009 -221 Intake: Oral 1520 540 Output: Urine 525 1500 975 Other: Voiding Method Urinal Urinal Urinal Diaper Incontinent # Voids 2 - Labs CBC & Chem 7: 07/25/24 03:10 07/25/24 03:10
--- NOTE | 2024-07-27 17:21 | P.PN ---
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 He does have a history of severe oxygen dependent chronic obstructive pulmonary disease and was following with a blogs manager there. He was maintained on Breo, Incruse, albuterol in the outpatient setting. He has smoked for over 50 years but quit 5 years ago. He is on no other home medications. He presented here to the emergency room yesterday with a 2 to 3-day history of increasing shortness of breath, cough and congestion. He initially was quite hypoxemic requiring BiPAP 10/5 and 40% FiO2. White count 5.3. Hemoglobin 13.5. Platelets 220. Sodium 131. Potassium 4.7. Bicarb 20. BUN 17. Creatinine 0.68. Glucose 136. Viral screen was negative. Troponin negative. proBNP 1370. Chest x-ray shows no acute cardiopulmonary process. Evidence of COPD. He is seen today in consultation in the emergency department. He is currently sitting up on a stretcher. Awake and alert. He is dyspneic with conversation. Dyspneic with minimal exertion. Sitting in a tripod position. Currently on oxygen at 2 L/min per nasal cannula. He is afe brile. Hemodynamically stable. On 07/25/2024, the patient is being seen for a follow-up. The patient is in the intensive care unit for an acute COPD exacerbation and acute on top of chronic hypoxic respiratory failure. This morning, the patient is calm and comfortable. She is on 2 L of oxygen by nasal cannula. She remains on bronchodilators. She remains on IV Solu-Medrol 60 mg every 8 hours. She is also on a combination of Perforomist and Pulmicort nebulized treatments twice a day. Less short of breath. Clinically improving. No new complaints although the past 24 hours. No signs of any CO2 narcosis. The white cell count of 7.3 with a heme of 12.3 and a platelet count of 186. BUN is 18 with a creatinine of 0.55 and a sodium levels at 130 and a potassium level is at 3.7. Denies having any other specific complaints otherwise for now. On 07/26/2024, the patient is being seen for a follow-up. Doing well. Less bronchospastic and wheezy compared to yesterday, remains on 3 L of oxygen by nasal cannula with a pulse ox of 98%. Remains on DuoNeb updrafts. Remains on a combination of Perforomist and Pulmicort nebulized treatment twice a day and IV Solu-Medrol 60 mg every 6 hours. IV fluids are still running at 75 cc an hour. No new labs are available from today. No altered mentation. No chest pain. Continues to have some limited cough and congestion. Significantly weak and debilitated. On 07/28/2024, the patient is still complaining of shortness of breath. He cont inues to be bronchospastic and wheezy. No major improvement since yesterday. He still on oxygen 3 L/min nasal cannula. Remains on bronchodilators. Remains on steroids.Will be done for him to see strength with Jasmine Hodge he is new complaints otherwise for now. No altered mentation. No other no new labs are available from today. Treatment remains unchanged. He remains on IV Solu-Medrol 60 mg every 6 hours. DuoNeb updrafts. Perforomist and Pulmicort nebulized treatments twice a day. Objective - Vital Signs Vital signs: Vital Signs Temp 98.1 F 07/27/24 14:36 Pulse 88 07/27/24 15:26 Resp 18 07/27/24 14:36 BP 141/73 07/27/24 14:36 Pulse Ox 98 07/27/24 14:36 FiO2 40 07/23/24 19:48 Intake & Output 07/26/24 07/27/24 07/27/24 18:59 06:59 18:59 Intake Total 1520 540 Output Total 525 1500 975 Balance 995 -960 -975 Intake: Oral 1520 540 Output: Urine 525 1500 975 Other: Voiding Method Urinal Urinal Urinal Diaper Incontinent # Voids 2 1 - Exam GENERAL EXAM: Alert, pleasant, very thin 68-year-old male, appears older than stated age, on 2 L nasal cannula, fairly comfortable in no apparent distress. HEAD: Normocephalic. EYES: Normal reaction of pupils, equal size. NOSE: Clear with pink turbinates. THROAT: No erythema or exudates. NECK: No masses, no JVD. CHEST: No chest wall deformity. LUNGS: Equal air entry with bilateral scattered rhonchi, wheezing, diminished. CVS: S1 and S2 normal with no audible murmur, regular rhythm. ABDOMEN: No hepatosplenomegaly, normal bowel sounds, no guarding or rigidity. SPINE: No scoliosis or deformity SKIN: No rashes CENTRAL NERVOUS SYSTEM: No focal deficits, tone is normal in all 4 extremities. EXTREMITIES: There is no peripheral edema. No clubbing, no cyanosis. Peripheral pulses are intact. - Labs CBC & Chem 7: 07/25/24 03:10 07/25/24 03:10 Assessment and Plan Plan: Acute on chronic hypoxemic respiratory failure secondary to an acute exacerbation of chronic obstructive pulmonary disease, currently off BiPAP and the patient is on 2 L of O2 nasal cannula Acute CF exacerbation, improving Acute on chronic shortness of breath, improving History of oxygen dependent chronic obstructive pulmonary disease maintained on oxygen at 2 L/min per nasal cannula History of 50 years chronic tobacco dependence however quit about 5 years ago Recently moved here from [facility], no health care providers obtained thus far Profound weakness and debility Plan: Will continue the same treatment for now. Patient was transferred out of the intensive care unit and the patient is currently on the medical floor. Currently on 2 L nasal cannula, stable oxygenation Patient currently off the BiPAP Continue DuoNeb inhalations Continue Pulmicort and Perforomist inhalations Continue Solu-Medrol 60 mg every 8 hours Titrate the FiO2 as tolerated Heparin for DVT prophylaxis Will follow
[2024-07-28 08:27] LABS: BUN/Creat Ratio 24.29 Ratio (12.00-20.00); Carbon Dioxide 34.4 mmol/L (21.6-31.8); Chloride 94 mmol/L (96-109); Glucose 148 mg/dL (70-110); Phosphorus 2.5 mg/dL (2.4-5.1); Potassium 4.2 mmol/L (3.5-5.5); Sodium 136 mmol/L (135-145)
[2024-07-28 08:54] LABS: Basophils # (A) 0 X 10*3/uL (0.00-0.10); Basophils % (A) 0 %; Eosinophils # (A) 0 X 10*3/uL (0.04-0.35); Eosinophils % (A) 0 %; HCT 37.4 % (39.6-50.0); HGB 12.6 g/dL (13.0-17.0); Lymphocytes % (A) 11.7 %; MCH 32.7 pg (27.0-32.0); MCHC 33.7 g/dL (32.0-37.0); MCV 97.1 FL (80.0-97.0); Mean Platelet Volume 11.1 FL (9.5-12.2); Monocytes # (A) 0.23 X 10*3/uL (0.20-1.00); Monocytes % (A) 5.4 %; NRBC Per 100 WBC 0 X 10*3/uL (0.00-0.01); Neutrophils # (A) 3.53 X 10*3/uL (1.80-7.70); Neutrophils % (A) 82.4 %; Platelet Count 177 X 10*3/uL (140-440); RBC 3.85 X 10*6/uL (4.40-5.60); RDW 13.2 % (11.5-14.5); WBC 4.28 X 10*3/uL (4.50-10.00)
--- NOTE | 2024-07-28 14:20 | P.PN ---
Subjective Interval History: 68-year-old male patient presents to the ED by ambulance complaining of having progressive dyspnea over the past week and a half or so. Patient has a history of COPD, and he reports being on 2 to 4 L of home O2. Patient states that he moved here from [place] about 4 months ago, and he states that he has not seen a primary care provider or suppression crew leader since moving here. Patient states that he has been using his albuterol inhaler without much relief. Patient admits to having a productive cough. EMS reports giving the patient a single DuoNeb treatment en route to the ED. EMS reports that the patient did not tolerate thei r attempt to put the patient on CPAP. Patient denies having any pain, fever or chills, headache, focal neuro deficit, chest pain, hemoptysis, palpitations, dizziness, abdominal pain, nausea or vomiting, bloody or melanotic stool, dysuria or urinary symptoms, decreased urine output, leg or calf swelling or pain, or any other symptoms or complaints. Patient states that he is a former smoker. Patient denies any illicit drug use. Blood work completed in ED reveals a WBC of 12.6, hemoglobin of 16.3 and platelet count of 262, sodium 129, potassium 4.8, BUNs/creatinine of 13/0.61 troponin of less than 0.012, BNP of 1370, lactic acid of 3.0 Viral screen is negative for influenza, RSV and COVID-19 Chest x-ray is negative for any acute cardiopulmonary process 07/25--patient was seen and examined today. Continue complain of shortness of breath, productive cough. On 2 L oxygen. Remains on bronchodilators, IV Solu- Medrol. WBC 7.3, hemoglobin 12.3, platelet 186. BMP unremarkable, sodium 130. Potassium 3.7. Pulmonary following. 07/26--patient was seen and examined today. Continue complain of productive cough, shortness of breath. Afebrile, heart rate 107, respiratory 22, blood pressure 131/73, saturating 98% 3 L. Remains on DuoNeb, Perforomist and Pulmicort, IV Solu-Medrol. Pulmonary following. 07/27--patient was seen and examined today. No issues overnight. Afebrile, heart rate 104, respiratory rate 18, blood pressure 134/69, saturating 99% on 3 L. Continue complain of shortness of breath, worse with exertion, cough. Continues on inhaler/bronchodilator protocol, on Solu-Medrol IV. Pulmonary following. 07/28--patient was seen and examined today. Remains on 3 to oxygen. Continues complain of shortness of breath, chest tightness, cough, congestion, wheezing, shortness of breath worse with ambulation. Remains on DuoNeb, Pulmicort, IV Solu-Medrol. Pulmonary following. Assessment and plan: Acute on chronic hypoxic respiratory failure: Acute COPD exacerbation: 2 L oxygen at baseline Former tobacco use: 50 years history, quit 5 years ago Weakness and debility: Presents for shortness of breath, chest x-ray negative for any acute process, admitted for acute COPD exacerbation Required BiPAP initially DuoNebs, Pulmicort, Perforomist inhalers Solu-Medrol Wean off oxygen as tolerated keep oxygen saturation above 90% Pulmonary consulted and following Severe PCM: Nutrition consult, supplements Debility: Weakness: PT/OT consulted evaluate for ECF Case management consult for help with outpatient resources. Moved from [place], patient going to call friend to find a place to stay. DVT prophylaxis: Subcutaneous heparin Monitor vital signs and labs Labs and medication were reviewed. Continue same treatment. Further recommendations as per clinical course of the patient PHYSICAL EXAMINATION: GENERAL: The patient is A&O x3, NAD HEENT: EOMI, Sclerae anicteric, Moist Mucous membranes Neck: Supple, Non tender, No JVD PULMONARY: Decreased breath sound bilaterally, bilateral expiratory wheezes. CARDIOVASCULAR: S1, S2 present. No murmurs, rubs, or gallops. ABDOMEN: Soft, nontender, nondistended, normoactive bowel sounds. No guarding or rebound tenderness. MUSCULOSKELETAL: No edema, No cyanosis. No clubbing. Normal ROM. Intact peripheral pulses. NEUROLOGICAL: CN 2-12 grossly intact. No FND Skin: No Rash REVIEW OF SYSTEMS: CONSTITUTIONAL: No fever or chills. CARDIOVASCULAR: No chest pain, palpitations or syncope. PULMONARY: Complains of shortness of breath. GASTROINTESTINAL: No nausea, vomiting, diarrhea, abdominal pain. : No Dysuria, urgency, frequency. Extremities: No edema. NEUROLOGICAL: No headaches, no weakness, or numbness Dictation was produced using [employer] software. please excuse any grammatical, word or spelling errors. Objective - Vital Signs Vital signs: Vital Signs Temp 98.2 F 07/28/24 11:35 Pulse 92 07/28/24 12:15 Resp 15 07/28/24 11:35 BP 122/65 07/28/24 11:35 Pulse Ox 97 07/28/24 11:35 FiO2 40 07/23/24 19:48 Intake & Output 07/27/24 07/28/24 07/28/24 18:59 06:59 18:59 Intake Total 3410 534 4433 Output Total 1075 1000 Balance 482 -40 2460 Intake: Oral 7608 026 8619 Output: Urine 1075 1000 Other: Voiding Method Urinal Diaper Incontinent # Voids 1 - Labs CBC & Chem 7: 07/28/24 05:52 07/28/24 05:52 Labs: Abnormal Lab Results - Last 24 Hours (Table) 07/28/24 07/28/24 Range/Units 05:52 05:52 WBC 4.28 L (4.50-10.00) X 10*3/uL RBC 3.85 L (4.40-5.60) X 10*6/uL Hgb 12.6 L (13.0-17.0) g/dL Hct 37.4 L (39.6-50.0) % MCV 97.1 H (80.0-97.0) FL MCH 32.7 H (27.0-32.0) pg Lymphocytes # 0.50 L (0.90-5.00) X 10*3/uL Eosinophils # 0 L (0.04-0.35) X 10*3/uL Chloride 94 L (96-109) mmol/L Carbon Dioxide 34.4 H (21.6-31.8) mmol/L BUN/Creatinine Ratio 24.29 H (12.00-20.00) Ratio Glucose 148 H (70-110) mg/dL
--- NOTE | 2024-07-29 00:03 | P.PN ---
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 He does have a history of severe oxygen dependent chronic obstructive pulmonary disease and was following with a substance abuse technician there. He was maintained on Breo, Incruse, albuterol in the outpatient setting. He has smoked for over 50 years but quit 5 years ago. He is on no other home medications. He presented here to the emergency room yesterday with a 2 to 3-day history of increasing shortness of breath, cough and congestion. He initially was quite hypoxemic requiring BiPAP 10/5 and 40% FiO2. White count 5.3. Hemoglobin 13.5. Platelets 220. Sodium 131. Potassium 4.7. Bicarb 20. BUN 17. Creatinine 0.68. Glucose 136. Viral screen was negative. Troponin negative. proBNP 1370. Chest x-ray shows no acute cardiopulmonary process. Evidence of COPD. He is seen today in consultation in the emergency department. He is currently sitting up on a stretcher. Awake and alert. He is dyspneic with conversation. Dyspneic with minimal exertion. Sitting in a tripod position. Currently on oxygen at 2 L/min per nasal cannula. He is afe brile. Hemodynamically stable. On 07/25/2024, the patient is being seen for a follow-up. The patient is in the intensive care unit for an acute COPD exacerbation and acute on top of chronic hypoxic respiratory failure. This morning, the patient is calm and comfortable. She is on 2 L of oxygen by nasal cannula. She remains on bronchodilators. She remains on IV Solu-Medrol 60 mg every 8 hours. She is also on a combination of Perforomist and Pulmicort nebulized treatments twice a day. Less short of breath. Clinically improving. No new complaints although the past 24 hours. No signs of any CO2 narcosis. The white cell count of 7.3 with a heme of 12.3 and a platelet count of 186. BUN is 18 with a creatinine of 0.55 and a sodium levels at 130 and a potassium level is at 3.7. Denies having any other specific complaints otherwise for now. On 07/26/2024, the patient is being seen for a follow-up. Doing well. Less bronchospastic and wheezy compared to yesterday, remains on 3 L of oxygen by nasal cannula with a pulse ox of 98%. Remains on DuoNeb updrafts. Remains on a combination of Perforomist and Pulmicort nebulized treatment twice a day and IV Solu-Medrol 60 mg every 6 hours. IV fluids are still running at 75 cc an hour. No new labs are available from today. No altered mentation. No chest pain. Continues to have some limited cough and congestion. Significantly weak and debilitated. On 07/28/2024, the patient is still complaining of shortness of breath. He cont inues to be bronchospastic and wheezy. No major improvement since yesterday. He still on oxygen 3 L/min nasal cannula. Remains on bronchodilators. Remains on steroids.Will be done for him to see strength with Jasmine Hodge he is new complaints otherwise for now. No altered mentation. No other no new labs are available from today. Treatment remains unchanged. He remains on IV Solu-Medrol 60 mg every 6 hours. DuoNeb updrafts. Perforomist and Pulmicort nebulized treatments twice a day. On 07/28/2024, the patient is being seen for a follow-up. Remains on 3 Suboxone by nasal cannula. Still having some cough congestion chest x-ray or wheeze. Remains on bronchodilators and steroids. He is on IV Solu-Medrol 60 mg every 6 hours. No other significant events overnight. The white cell count is at 4.2 regular 12.6 and a platelet count of 177. Electrolytes are all within normal limits. Serum bicarbonate 34. Potassium level is at 4.2. Magnesium is at 2.0. Objective - Vital Signs Vital signs: Vital Signs Temp 98.2 F 07/28/24 19:10 Pulse 96 07/28/24 23:32 Resp 15 07/28/24 11:35 BP 128/55 07/28/24 19:10 Pulse Ox 97 07/28/24 19:10 FiO2 40 07/23/24 19:48 Intake & Output 07/28/24 07/28/24 07/29/24 06:59 18:59 06:59 Intake Total 960 4100 Output Total 1000 Balance -40 4100 Intake: Oral 960 4100 Output: Urine 1000 Other: # Voids 5 # Bowel Movements 1 - Exam GENERAL EXAM: Alert, pleasant, very thin 68-year-old male, appears older than stated age, on 2 L nasal cannula, fairly comfortable in no apparent distress. HEAD: Normocephalic. EYES: Normal reaction of pupils, equal size. NOSE: Clear with pink turbinates. THROAT: No erythema or exudates. NECK: No masses, no JVD. CHEST: No chest wall deformity. LUNGS: Equal air entry with bilateral scattered rhonchi, wheezing, diminished. CVS: S1 and S2 normal with no audible murmur, regular rhythm. ABDOMEN: No hepatosplenomegaly, normal bowel sounds, no guarding or rigidity. SPINE: No scoliosis or deformity SKIN: No rashes CENTRAL NERVOUS SYSTEM: No focal deficits, tone is normal in all 4 extremities. EXTREMITIES: There is no peripheral edema. No clubbing, no cyanosis. Peripheral pulses are intact. - Labs CBC & Chem 7: 07/28/24 05:52 07/28/24 05:52 Labs: Abnormal Lab Results - Last 24 Hours (Table) 07/28/24 07/28/24 Range/Units 05:52 05:52 WBC 4.28 L (4.50-10.00) X 10*3/uL RBC 3.85 L (4.40-5.60) X 10*6/uL Hgb 12.6 L (13.0-17.0) g/dL Hct 37.4 L (39.6-50.0) % MCV 97.1 H (80.0-97.0) FL MCH 32.7 H (27.0-32.0) pg Lymphocytes # 0.50 L (0.90-5.00) X 10*3/uL Eosinophils # 0 L (0.04-0.35) X 10*3/uL Chloride 94 L (96-109) mmol/L Carbon Dioxide 34.4 H (21.6-31.8) mmol/L BUN/Creatinine Ratio 24.29 H (12.00-20.00) Ratio Glucose 148 H (70-110) mg/dL Assessment and Plan Plan: Acute on chronic hypoxemic respiratory failure secondary to an acute exacerbation of chronic obstructive pulmonary disease, currently off BiPAP and the patient is on 2 L of O2 nasal cannula Acute CF exacerbation, improving Acute on chronic shortness of breath, improving History of oxygen dependent chronic obstructive pulmonary disease maintained on oxygen at 2 L/min per nasal cannula History of 50 years chronic tobacco dependence however quit about 5 years ago Recently moved here from [facility], no health care providers obtained thus far Profound weakness and debility Plan: Will continue the same treatment for now. No changes. Continue IV Solu-Medrol. Patient was transferred out of the intensive care unit and the patient is currently on the medical floor. Currently on 2 L nasal cannula, stable oxygenation Patient currently off the BiPAP Continue DuoNeb inhalations Continue Pulmicort and Perforomist inhalations Continue Solu-Medrol 60 mg every 8 hours Titrate the FiO2 as tolerated Heparin for DVT prophylaxis Will follow
[2024-07-29] MEDS ORDERED: METOPROLOL TARTRATE 5 MG/5 ML VIAL IVP PRN (12:55)
--- NOTE | 2024-07-29 13:55 | P.PN ---
Subjective Interval History: 68-year-old male patient presents to the ED by ambulance complaining of having progressive dyspnea over the past week and a half or so. Patient has a history of COPD, and he reports being on 2 to 4 L of home O2. Patient states that he moved here from [place] about 4 months ago, and he states that he has not seen a primary care provider or substance addiction coordinator since moving here. Patient states that he has been using his albuterol inhaler without much relief. Patient admits to having a productive cough. EMS reports giving the patient a single DuoNeb treatment en route to the ED. EMS reports that the patient did not tolerate thei r attempt to put the patient on CPAP. Patient denies having any pain, fever or chills, headache, focal neuro deficit, chest pain, hemoptysis, palpitations, dizziness, abdominal pain, nausea or vomiting, bloody or melanotic stool, dysuria or urinary symptoms, decreased urine output, leg or calf swelling or pain, or any other symptoms or complaints. Patient states that he is a former smoker. Patient denies any illicit drug use. Blood work completed in ED reveals a WBC of 12.6, hemoglobin of 16.3 and platelet count of 262, sodium 129, potassium 4.8, BUNs/creatinine of 13/0.61 troponin of less than 0.012, BNP of 1370, lactic acid of 3.0 Viral screen is negative for influenza, RSV and COVID-19 Chest x-ray is negative for any acute cardiopulmonary process 07/25--patient was seen and examined today. Continue complain of shortness of breath, productive cough. On 2 L oxygen. Remains on bronchodilators, IV Solu- Medrol. WBC 7.3, hemoglobin 12.3, platelet 186. BMP unremarkable, sodium 130. Potassium 3.7. Pulmonary following. 07/26--patient was seen and examined today. Continue complain of productive cough, shortness of breath. Afebrile, heart rate 107, respiratory 22, blood pressure 131/73, saturating 98% 3 L. Remains on DuoNeb, Perforomist and Pulmicort, IV Solu-Medrol. Pulmonary following. 07/27--patient was seen and examined today. No issues overnight. Afebrile, heart rate 104, respiratory rate 18, blood pressure 134/69, saturating 99% on 3 L. Continue complain of shortness of breath, worse with exertion, cough. Continues on inhaler/bronchodilator protocol, on Solu-Medrol IV. Pulmonary following. 07/28--patient was seen and examined today. Remains on 3 to oxygen. Continues complain of shortness of breath, chest tightness, cough, congestion, wheezing, shortness of breath worse with ambulation. Remains on DuoNeb, Pulmicort, IV Solu-Medrol. Pulmonary following. 07/29--patient was seen and examined today. Patient is afebrile, heart rate 92, respiratory rate 15, blood pressure 103/65, saturating 96% on 3 L. WBC 4.2, hemoglobin 12.6, platelet 177. BMP unremarkable. Continue complain of shortness of breath, wheezing, cough, congestion. Telemetry showed accelerated junctional rhythm with heart rate going up to 160s transiently. Patient is symp tomatic. Will continue monitor with telemetry, cardiology consulted. Patient uses 3 L oxygen at home, has a concentrator, patient reported that he has been evicted from his apartment, concentrators in the stool resumed, patient is calling his friend to find a place to stay. Assessment and plan: Acute on chronic hypoxic respiratory failure: Acute COPD exacerbation: 2 L oxygen at baseline Former tobacco use: 50 years history, quit 5 years ago Weakness and debility: Presents for shortness of breath, chest x-ray negative for any acute process, admitted for acute COPD exacerbation Required BiPAP initially DuoNebs, Pulmicort, Perforomist inhalers Solu-Medrol Wean off oxygen as tolerated keep oxygen saturation above 90% Pulmonary consulted and following Tachycardia: Noted to have accelerated junctional tachycardia, monitor with telemetry, EKGs Monitor electrolytes, potassium 4.2, magnesium of 2.0. Cardiology consult. Severe PCM: Nutrition consult, supplements Debility: Weakness: PT/OT consulted evaluate for ECF Case management consult for help with outpatient resources. Moved from [place], evicted from his apartment, oxygen concentrator at storage, patient going to call friend to find a place to stay. DVT prophylaxis: Subcutaneous heparin Monitor vital signs and labs Labs and medication were reviewed. Continue same treatment. Further recommendations as per clinical course of the patient PHYSICAL EXAMINATION: GENERAL: The patient is A&O x3, NAD HEENT: EOMI, Sclerae anicteric, Moist Mucous membranes Neck: Supple, Non tender, No JVD PULMONARY: Decreased breath sound bilaterally, bilateral expiratory wheezes. CARDIOVASCULAR: S1, S2 present. No murmurs, rubs, or gallops. ABDOMEN: Soft, nontender, nondistended, normoactive bowel sounds. No guarding or rebound tenderness. MUSCULOSKELETAL: No edema, No cyanosis. No clubbing. Normal ROM. Intact peripheral pulses. NEUROLOGICAL: CN 2-12 grossly intact. No FND Skin: No Rash REVIEW OF SYSTEMS: CONSTITUTIONAL: No fever or chills. CARDIOVASCULAR: No chest pain, palpitations or syncope. PULMONARY: Complains of shortness of breath. GASTROINTESTINAL: No nausea, vomiting, diarrhea, abdominal pain. : No Dysuria, urgency, frequency. Extremities: No edema. NEUROLOGICAL: No headaches, no weakness, or numbness Dictation was produced using [employer] dictation software. please excuse any gr ammatical, word or spelling errors. Objective - Vital Signs Vital signs: Vital Signs Temp 98.0 F 07/29/24 11:50 Pulse 92 07/29/24 12:44 Resp 15 07/29/24 11:50 BP 103/65 07/29/24 11:50 Pulse Ox 96 07/29/24 11:50 FiO2 40 07/23/24 19:48 Intake & Output 07/28/24 07/29/24 07/29/24 18:59 06:59 18:59 Intake Total 4100 1020 2220 Output Total 1100 Balance 4100 -80 2220 Intake: Oral 4100 1020 2220 Output: Urine 1100 Other: Voiding Method Urinal Urinal Diaper Diaper # Voids 5 # Bowel Movements 1 - Labs CBC & Chem 7: 07/28/24 05:52 07/28/24 05:52
--- NOTE | 2024-07-29 17:37 | P.PN ---
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 He does have a history of severe oxygen dependent chronic obstructive pulmonary disease and was following with a excelsior machine operator there. He was maintained on Breo, Incruse, albuterol in the outpatient setting. He has smoked for over 50 years but quit 5 years ago. He is on no other home medications. He presented here to the emergency room yesterday with a 2 to 3-day history of increasing shortness of breath, cough and congestion. He initially was quite hypoxemic requiring BiPAP 10/5 and 40% FiO2. White count 5.3. Hemoglobin 13.5. Platelets 220. Sodium 131. Potassium 4.7. Bicarb 20. BUN 17. Creatinine 0.68. Glucose 136. Viral screen was negative. Troponin negative. proBNP 1370. Chest x-ray shows no acute cardiopulmonary process. Evidence of COPD. He is seen today in consultation in the emergency department. He is currently sitting up on a stretcher. Awake and alert. He is dyspneic with conversation. Dyspneic with minimal exertion. Sitting in a tripod position. Currently on oxygen at 2 L/min per nasal cannula. He is afe brile. Hemodynamically stable. On 07/25/2024, the patient is being seen for a follow-up. The patient is in the intensive care unit for an acute COPD exacerbation and acute on top of chronic hypoxic respiratory failure. This morning, the patient is calm and comfortable. She is on 2 L of oxygen by nasal cannula. She remains on bronchodilators. She remains on IV Solu-Medrol 60 mg every 8 hours. She is also on a combination of Perforomist and Pulmicort nebulized treatments twice a day. Less short of breath. Clinically improving. No new complaints although the past 24 hours. No signs of any CO2 narcosis. The white cell count of 7.3 with a heme of 12.3 and a platelet count of 186. BUN is 18 with a creatinine of 0.55 and a sodium levels at 130 and a potassium level is at 3.7. Denies having any other specific complaints otherwise for now. On 07/26/2024, the patient is being seen for a follow-up. Doing well. Less bronchospastic and wheezy compared to yesterday, remains on 3 L of oxygen by nasal cannula with a pulse ox of 98%. Remains on DuoNeb updrafts. Remains on a combination of Perforomist and Pulmicort nebulized treatment twice a day and IV Solu-Medrol 60 mg every 6 hours. IV fluids are still running at 75 cc an hour. No new labs are available from today. No altered mentation. No chest pain. Continues to have some limited cough and congestion. Significantly weak and debilitated. On 07/28/2024, the patient is still complaining of shortness of breath. He cont inues to be bronchospastic and wheezy. No major improvement since yesterday. He still on oxygen 3 L/min nasal cannula. Remains on bronchodilators. Remains on steroids.Will be done for him to see strength with Jasmine Hodge he is new complaints otherwise for now. No altered mentation. No other no new labs are available from today. Treatment remains unchanged. He remains on IV Solu-Medrol 60 mg every 6 hours. DuoNeb updrafts. Perforomist and Pulmicort nebulized treatments twice a day. On 07/28/2024, the patient is being seen for a follow-up. Remains on 3 Suboxone by nasal cannula. Still having some cough congestion chest x-ray or wheeze. Remains on bronchodilators and steroids. He is on IV Solu-Medrol 60 mg every 6 hours. No other significant events overnight. The white cell count is at 4.2 regular 12.6 and a platelet count of 177. Electrolytes are all within normal limits. Serum bicarbonate 34. Potassium level is at 4.2. Magnesium is at 2.0. 07/29/2024, the patient reports some improvement in his shortness of breath. Seems to be less bronchospastic and wheezy. Remains on 3 days of oxygen by nasal cannula. He remains on bronchodilators and IV Solu-Medrol. I am going to keep the IV Solu-Medrol for another 24 hours. He denies having specific complaints. No chest pain. No altered mentation. No C. No hemoptysis. Objective - Vital Signs Vital signs: Vital Signs Temp 97.9 F 07/29/24 07:25 Pulse 82 07/29/24 07:25 Resp 16 07/29/24 07:25 BP 109/76 07/29/24 07:25 Pulse Ox 93 L 07/29/24 07:25 FiO2 40 07/23/24 19:48 Intake & Output 07/28/24 07/29/24 07/29/24 18:59 06:59 18:59 Intake Total 4100 1020 780 Output Total 1100 Balance 4100 -80 780 Intake: Oral 4100 1020 780 Output: Urine 1100 Other: Voiding Method Urinal Urinal Diaper Diaper # Voids 5 # Bowel Movements 1 - Exam GENERAL EXAM: Alert, pleasant, very thin 68-year-old male, appears older than stated age, on 2 L nasal cannula, fairly comfortable in no apparent distress. HEAD: Normocephalic. EYES: Normal reaction of pupils, equal size. NOSE: Clear with pink turbinates. THROAT: No erythema or exudates. NECK: No masses, no JVD. CHEST: No chest wall deformity. LUNGS: Equal air entry with bilateral scattered rhonchi, wheezing, diminished. CVS: S1 and S2 normal with no audible murmur, regular rhythm. ABDOMEN: No hepatosplenomegaly, normal bowel sounds, no guarding or rigidity. SPINE: No scoliosis or deformity SKIN: No rashes CENTRAL NERVOUS SYSTEM: No focal deficits, tone is normal in all 4 extremities. EXTREMITIES: There is no peripheral edema. No clubbing, no cyanosis. Peripheral pulses are intact. - Labs CBC & Chem 7: 07/28/24 05:52 07/28/24 05:52 Labs: Abnormal Lab Results - Last 24 Hours (Table) 07/28/24 Range/Units 05:52 WBC 4.28 L (4.50-10.00) X 10*3/uL RBC 3.85 L (4.40-5.60) X 10*6/uL Hgb 12.6 L (13.0-17.0) g/dL Hct 37.4 L (39.6-50.0) % MCV 97.1 H (80.0-97.0) FL MCH 32.7 H (27.0-32.0) pg Lymphocytes # 0.50 L (0.90-5.00) X 10*3/uL Eosinophils # 0 L (0.04-0.35) X 10*3/uL Assessment and Plan Plan: Acute on chronic hypoxemic respiratory failure secondary to an acute exacerbation of chronic obstructive pulmonary disease, currently off BiPAP and the patient is on 3 L of O2 nasal cannula Acute COPD exacerbation, improving Acute on chronic shortness of breath, improving History of oxygen dependent chronic obstructive pulmonary disease maintained on oxygen at 3 L/min per nasal cannula History of 50 years chronic tobacco dependence however quit about 5 years ago Recently moved here from [facility], no health care providers obtained thus far Profound weakness and debility Plan: Will continue the same treatment for now. No changes. Continue IV Solu-Medrol for another 24 hours and start the patient on prednisone burst taper probably next 1 to 4 hours. Patient was transferred out of the intensive care unit and the patient is currently on the medical floor. Currently on 2 to 3 L nasal cannula, stable oxygenation Patient currently off the BiPAP Continue DuoNeb inhalations Continue Pulmicort and Perforomist inhalations Continue Solu-Medrol 60 mg every 8 hours Titrate the FiO2 as tolerated, remains at 3 L of oxygen by nasal cannula Heparin for DVT prophylaxis Will follow
[2024-07-30] MEDS: ALBUTEROL NEBULIZED 2.5 MG/3 ML INHALATION SCH (08:47)
--- NOTE | 2024-07-30 14:14 | P.PN ---
Subjective Progress Note Date: 07/30/24 68-year-old male patient presents to the ED by ambulance complaining of having progressive dyspnea over the past week and a half or so. Patient has a history of COPD, and he reports being on 2 to 4 L of home O2. Patient states that he moved here from [place] about 4 months ago, and he states that he has not seen a primary care provider or billboard mechanic since moving here. Patient states that he has been using his albuterol inhaler without much relief. Patient admits to having a productive cough. EMS reports giving the patient a single DuoNeb treatment en route to the ED. EMS reports that the patient did not tolerate their attempt to put the patient on CPAP. Patient denies having any pain, fever or chills, headache, focal neuro deficit, chest pain, hemoptysis, palpitations, dizziness, abdominal pain, nausea or vomiting, bloody or melanotic stool, dysuria or urinary symptoms, decreased urine output, leg or calf swelling or pain, or any other symptoms or complaints. Patient states that he is a former smoker. Patient denies any illicit drug use. Blood work completed in ED reveals a WBC of 12.6, hemoglobin of 16.3 and platelet count of 262, sodium 129, potassium 4.8, BUNs/creatinine of 13/0.61 troponin of less than 0.012, BNP of 1370, lactic acid of 3.0 Viral screen is negative for influenza, RSV and COVID-19 Chest x-ray is negative for any acute cardiopulmonary process 07/25--patient was seen and examined today. Continue complain of shortness of breath, productive cough. On 2 L oxygen. Remains on bronchodilators, IV Solu- Medrol. WBC 7.3, hemoglobin 12.3, platelet 186. BMP unremarkable, sodium 130. Potassium 3.7. Pulmonary following. 07/26--patient was seen and examined today. Continue complain of productive cough, shortness of breath. Afebrile, heart rate 107, respiratory 22, blood pressure 131/73, saturating 98% 3 L. Remains on DuoNeb, Perforomist and Pulmicort, IV Solu-Medrol. Pulmonary following. 07/27--patient was seen and examined today. No issues overnight. Afebrile, heart rate 104, respiratory rate 18, blood pressure 134/69, saturating 99% on 3 L. Continue complain of shortness of breath, worse with exertion, cough. Continues on inhaler/bronchodilator protocol, on Solu-Medrol IV. Pulmonary following. 07/28--patient was seen and examined today. Remains on 3 to oxygen. Continues complain of shortness of breath, chest tightness, cough, congestion, wheezing, shortness of breath worse with ambulation. Remains on DuoNeb, Pulmicort, IV So cindy-Medrol. Pulmonary following. 07/29--patient was seen and examined today. Patient is afebrile, heart rate 92, respiratory rate 15, blood pressure 103/65, saturating 96% on 3 L. WBC 4.2, hemoglobin 12.6, platelet 177. BMP unremarkable. Continue complain of shortness of breath, wheezing, cough, congestion. Telemetry showed accelerated junctional rhythm with heart rate going up to 160s transiently. Patient is symptomatic. Will continue monitor with telemetry, cardiology consulted. Alyssia chauhan uses 3 L oxygen at home, has a concentrator, patient reported that he has been evicted from his apartment, concentrators in the stool resumed, patient is calling his friend to find a place to stay. 07/30. Patient seen and examined. States breathing is improved. Gets short of breath on exertion. Vital signs this morning showed temperature 98.1, heart rate 85, respirations 16, blood pressure 111/63, currently on 3 L of oxygen REVIEW OF SYSTEMS: CONSTITUTIONAL: No fever, no malaise,. CARDIOVASCULAR: No chest pain, no palpitations, no syncope. PULMONARY: As mentioned above GASTROINTESTINAL: No diarrhea, no nausea, no vomiting, no abdominal pain. NEUROLOGICAL: No headaches, no weakness, PHYSICAL EXAMINATION: GENERAL: The patient is alert and oriented x3, not in any acute distress. Ill looking HEENT: Pupils are round and equally reacting to light. EOMI. No scleral icterus. No conjunctival pallor. Normocephalic, atraumatic. No pharyngeal erythema. No thyromegaly. CARDIOVASCULAR: S1 and S2 present. No murmurs, rubs, or gallops. PULMONARY: Coarse breath sounds bilaterally, no wheezing or crackles. ABDOMEN: Soft, nontender, nondistended, normoactive bowel sounds. No palpable organomegaly. MUSCULOSKELETAL: No joint swelling or deformity. EXTREMITIES: No cyanosis, clubbing, or pedal edema. NEUROLOGICAL: Gross neurological examination did not reveal any focal deficits. SKIN: No rashes. Assessment and plan Acute on chronic hypoxic respiratory failure: Acute COPD exacerbation: 2 L oxygen at baseline Former tobacco use: 50 years history, quit 5 years ago Weakness and debility: Presents for shortness of breath, chest x-ray negative for any acute process, admitted for acute COPD exacerbation Required BiPAP initially DuoNebs, Pulmicort, Perforomist inhalers Solu-Medrol Wean off oxygen as tolerated keep oxygen saturation above 90% Pulmonary consulted and following Tachycardia: Noted to have accelerated junctional tachycardia, monitor with telemetry, EKGs Monitor electrolytes, potassium 4.2, magnesium of 2.0. Cardiology following Severe PCM: Nutrition consult, supplements Debility: Weakness: PT/OT consulted evaluate for ECF Case management consult for help with outpatient resources. Moved from [place], evicted from his apartment, oxygen concentrator at storage, patient going to call friend to find a place to stay. Labs and medication were reviewed.. Continue same treatment. Continue with symptomatic treatment. Resume home medication. Monitor labs and vitals. DVT and GI prophylaxis. Further recommendations as per clinical course of the patient Dictation was produced using [employer] dictation software. please excuse any grammatical, word or spelling errors. Objective - Vital Signs Vital signs: Vital Signs Temp 98.1 F 07/30/24 11:47 Pulse 86 07/30/24 12:27 Resp 16 07/30/24 11:47 BP 111/63 07/30/24 11:47 Pulse Ox 97 07/30/24 11:47 FiO2 40 07/23/24 19:48 Intake & Output 07/29/24 07/30/24 07/30/24 18:59 06:59 18:59 Intake Total 2220 1020 1440 Output Total 825 Balance 2220 195 1440 Intake: Oral 2220 1020 1440 Output: Urine 825 Other: Voiding Method Urinal Urinal Urinal Diaper Diaper Diaper # Bowel Movements 1 - Labs CBC & Chem 7: 07/28/24 05:52 07/28/24 05:52
--- NOTE | 2024-07-30 16:22 | P.PN ---
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 He does have a history of severe oxygen dependent chronic obstructive pulmonary disease and was following with a proof operator there. He was maintained on Breo, Incruse, albuterol in the outpatient setting. He has smoked for over 50 years but quit 5 years ago. He is on no other home medications. He presented here to the emergency room yesterday with a 2 to 3-day history of increasing shortness of breath, cough and congestion. He initially was quite hypoxemic requiring BiPAP 10/5 and 40% FiO2. White count 5.3. Hemoglobin 13.5. Platelets 220. Sodium 131. Potassium 4.7. Bicarb 20. BUN 17. Creatinine 0.68. Glucose 136. Viral screen was negative. Troponin negative. proBNP 1370. Chest x-ray shows no acute cardiopulmonary process. Evidence of COPD. He is seen today in consultation in the emergency department. He is currently sitting up on a stretcher. Awake and alert. He is dyspneic with conversation. Dyspneic with minimal exertion. Sitting in a tripod position. Currently on oxygen at 2 L/min per nasal cannula. He is afe brile. Hemodynamically stable. On 07/25/2024, the patient is being seen for a follow-up. The patient is in the intensive care unit for an acute COPD exacerbation and acute on top of chronic hypoxic respiratory failure. This morning, the patient is calm and comfortable. She is on 2 L of oxygen by nasal cannula. She remains on bronchodilators. She remains on IV Solu-Medrol 60 mg every 8 hours. She is also on a combination of Perforomist and Pulmicort nebulized treatments twice a day. Less short of breath. Clinically improving. No new complaints although the past 24 hours. No signs of any CO2 narcosis. The white cell count of 7.3 with a heme of 12.3 and a platelet count of 186. BUN is 18 with a creatinine of 0.55 and a sodium levels at 130 and a potassium level is at 3.7. Denies having any other specific complaints otherwise for now. On 07/26/2024, the patient is being seen for a follow-up. Doing well. Less bronchospastic and wheezy compared to yesterday, remains on 3 L of oxygen by nasal cannula with a pulse ox of 98%. Remains on DuoNeb updrafts. Remains on a combination of Perforomist and Pulmicort nebulized treatment twice a day and IV Solu-Medrol 60 mg every 6 hours. IV fluids are still running at 75 cc an hour. No new labs are available from today. No altered mentation. No chest pain. Continues to have some limited cough and congestion. Significantly weak and debilitated. On 07/28/2024, the patient is still complaining of shortness of breath. He cont inues to be bronchospastic and wheezy. No major improvement since yesterday. He still on oxygen 3 L/min nasal cannula. Remains on bronchodilators. Remains on steroids.Will be done for him to see strength with Jasmine Hodge he is new complaints otherwise for now. No altered mentation. No other no new labs are available from today. Treatment remains unchanged. He remains on IV Solu-Medrol 60 mg every 6 hours. DuoNeb updrafts. Perforomist and Pulmicort nebulized treatments twice a day. On 07/28/2024, the patient is being seen for a follow-up. Remains on 3 Suboxone by nasal cannula. Still having some cough congestion chest x-ray or wheeze. Remains on bronchodilators and steroids. He is on IV Solu-Medrol 60 mg every 6 hours. No other significant events overnight. The white cell count is at 4.2 regular 12.6 and a platelet count of 177. Electrolytes are all within normal limits. Serum bicarbonate 34. Potassium level is at 4.2. Magnesium is at 2.0. 07/29/2024, the patient reports some improvement in his shortness of breath. Seems to be less bronchospastic and wheezy. Remains on 3 days of oxygen by nasal cannula. He remains on bronchodilators and IV Solu-Medrol. I am going to keep the IV Solu-Medrol for another 24 hours. He denies having specific complaints. No chest pain. No altered mentation. No C. No hemoptysis. 07/30/2024, the patient reports slow but ongoing improvement. He is able to sit up in a chair. Mobility is limited. Exercise capacity is also limited due to his advanced COPD. No worsening shortness of breath. Remains on 2 L of oxygen by nasal cannula. Remains on bronchodilators. Remains on steroids. No new labs are available from today. No altered mentation. No chest pain. Tolerating diet. Objective - Vital Signs Vital signs: Vital Signs Temp 98.1 F 07/30/24 11:47 Pulse 101 H 07/30/24 15:56 Resp 16 07/30/24 11:47 BP 111/63 07/30/24 11:47 Pulse Ox 97 07/30/24 11:47 FiO2 40 07/23/24 19:48 Intake & Output 07/29/24 07/30/24 07/30/24 18:59 06:59 18:59 Intake Total 2220 1020 3000 Output Total 825 Balance 2220 195 3000 Intake: Oral 2220 1020 3000 Output: Urine 825 Other: Voiding Method Urinal Urinal Urinal Diaper Diaper Diaper # Voids 5 # Bowel Movements 1 - Exam GENERAL EXAM: Alert, pleasant, very thin 68-year-old male, appears older than stated age, on 2 L nasal cannula, fairly comfortable in no apparent distress. HEAD: Normocephalic. EYES: Normal reaction of pupils, equal size. NOSE: Clear with pink turbinates. THROAT: No erythema or exudates. NECK: No masses, no JVD. CHEST: No chest wall deformity. LUNGS: Equal air entry with bilateral scattered rhonchi, wheezing, diminished. CVS: S1 and S2 normal with no audible murmur, regular rhythm. ABDOMEN: No hepatosplenomegaly, normal bowel sounds, no guarding or rigidity. SPINE: No scoliosis or deformity SKIN: No rashes CENTRAL NERVOUS SYSTEM: No focal deficits, tone is normal in all 4 extremities. EXTREMITIES: There is no peripheral edema. No clubbing, no cyanosis. Periphe ral pulses are intact. - Labs CBC & Chem 7: 07/28/24 05:52 07/28/24 05:52 Assessment and Plan Plan: Acute on chronic hypoxemic respiratory failure secondary to an acute exacerbation of chronic obstructive pulmonary disease, currently off BiPAP and the patient is on 3 L of O2 nasal cannula Acute COPD exacerbation, improving Acute on chronic shortness of breath, improving History of oxygen dependent chronic obstructive pulmonary disease maintained on oxygen at 3 L/min per nasal cannula History of 50 years chronic tobacco dependence however quit about 5 years ago Recently moved here from [facility], no health care providers obtained thus far Profound weakness and debility Plan: Will continue the same treatment for now. No changes. Continue IV Solu-Medrol. Patient was transferred out of the intensive care unit and the patient is currently on the medical floor. Currently on 2 liters of oxygen nasal cannula Patient currently off the BiPAP Continue DuoNeb inhalations Continue Pulmicort and Perforomist inhalations Continue Solu-Medrol 60 mg every 8 hours Heparin for DVT prophylaxis Will follow Will need ECF upon discharge
[2024-07-30] MEDS ORDERED: METOPROLOL SUCCINATE (ER) 25 MG TAB.ER.24H PO SCH (16:45)
[2024-07-30] MEDS: METOPROLOL SUCCINATE (ER) 25 MG TAB.ER.24H PO SCH (17:28)
--- NOTE | 2024-07-31 00:31 | P.CRDCN ---
History of Present Illness Consult date: 07/31/24 History of present illness: HISTORY OF PRESENTING ILLNESS: 68-year-old with history of COPD got admitted for acute hypoxic respiratory failure and dyspnea on exertion. He has been managed for COPD exacerbation. Cardiology was consulted because he was noticed to have tachycardia during his hospital stay. Computer read the EKG as junctional tachycardia for which cardiology was consulted. On my review of EKG it appears to be sinus tachycardia. On review of telemetry it appears that patient has intermittent sinus tachycardia and currently is maintaining normal sinus rhythm. This is most likely related to his underlying COPD exacerbation and could be related to his breathing treatments that he is been receiving as a treatment for COPD. He denies any symptoms of chest pain chest pressure palpitations He denies any prior cardiovascular history Any history of stroke, atrial fibrillation. TSH was obtained and in for 0.9, REVIEW OF SYSTEMS: 14 point review of system is negative except what is mentioned above in HPI. PHYSICAL EXAMINATION: Neck: Brisk carotid upstroke, no jugular venous distention. Lungs: Wheezing in bilateral lung chapman with diminished air entry bilateral lower lung chapman Heart: Regular rate and rhythm, S1-S2, , no murmur or rub. Abdomen: Soft nontender, positive bowel sounds. Extremities: No edema, intact distal pulses. Neuro: Alert, oritented, no focal deficits. Detailed neuro exam was not performed. ASSESSMENT: # Sinus tachycardia, likely physiological, currently resolved # Acute COPD exacerbation # Acute on chronic hypoxic respiratory failure due to COPD exacerbation # [id number] smoking history, quit 5 years ago # Debility and frailty with generalized weakness # Cachexia PLAN: Obtain HbA1c, lipid panel Obtain echocardiogram If both are normal, consider outpatient ischemic evaluation considering his intermediate to high pretest probability for CAD Chapo Barnes MD, FACC, RPVI Thank you for allowing [facility] to participate in this patient's care. Feel free to reach out in case of any followup questions. Past Medical History Past Medical History: COPD Additional Past Medical History / Comment(s): 3L O2 at home, hammertoes History of Any Multi-Drug Resistant Organisms: None Reported Past Surgical History: Hernia Repair Additional Past Surgical History / Comment(s): toe sx, cataracts Past Anesthesia/Blood Transfusion Reactions: No Reported Reaction Smoking Status: Former smoker Medications and Allergies Home Medications Medication Instructions Recorded Confirmed Type Albuterol Inhaler [Ventolin Hfa 2 puff INHALATION RT-QID PRN 07/24/24 07/24/24 History Inhaler] Allergies Allergy/AdvReac Type Severity Reaction Status Date / Time No Known Allergies Allergy Verified 07/24/24 08:17 Physical Exam Vitals: Vital Signs Temp Pulse Pulse Pulse Resp BP Pulse Ox 07/30/24 20:43 88 07/30/24 20:20 94 07/30/24 19:48 98.3 F 87 14 132/76 98 07/30/24 15:56 101 H 07/30/24 15:44 100 07/30/24 12:27 86 07/30/24 12:17 87 07/30/24 11:47 98.1 F 85 16 111/63 97 07/30/24 09:10 90 07/30/24 08:50 97 07/30/24 08:47 92 07/30/24 08:00 92 78 15 07/30/24 07:04 98.0 F 78 15 134/72 98 07/30/24 02:00 97.7 F 84 12 119/72 98 Intake and Output 07/30/24 07/30/24 07/31/24 14:59 22:59 06:59 Intake Total 3000 480 Output Total 650 Balance 3000 -170 Intake: Oral 3000 480 Output: Urine 650 Other: Voiding Method Urinal Urinal Diaper Diaper # Voids 5 # Bowel Movements 1 Results 07/28/24 05:52 07/28/24 05:52 Current Medications Generic Name Dose Route Start Last Admin Trade Name Freq PRN Reason Stop Dose Admin Albuterol Sulfate 2.5 mg 07/30/24 08:00 07/30/24 20:20 Albuterol Nebulized 2.5 Mg/3 Ml INHALATION 2.5 mg RT-QID ROSY Administration Albuterol/Ipratropium 3 ml 07/24/24 08:39 07/27/24 05:59 Ipratropium-Albuterol 3 Ml Neb INHALATION 3 ml RT-TID PRN Administration Shortness Of Breath Or Wheezing Albuterol/Ipratropium 3 ml 07/24/24 08:39 Ipratropium-Albuterol 3 Ml Neb INHALATION RT-Q2H PRN Shortness Of Breath Or Wheezing Budesonide 1 mg 07/24/24 20:00 07/30/24 20:19 Budesonide 1 Mg/2 Ml Nebu INHALATION 1 mg RT-BID ROSY Administration Formoterol Fumarate 20 mcg 07/24/24 20:00 07/30/24 20:19 Formoterol Fumarate 20 Mcg/2 Ml Nebu INHALATION Not Given RT-BID ROSY Heparin Sodium (Porcine) 5,000 unit 07/24/24 09:00 07/30/24 20:16 Heparin Sodium,Porcine 5,000 Unit/Ml 1 Ml Vial SQ 5,000 unit Q12HR ROSY Administration Sodium Chloride 1,000 mls @ 10 mls/hr 07/23/24 21:00 07/30/24 04:22 Saline 0.9% IV Not Given .Q24H ROSY Methylprednisolone Sodium Succinate 60 mg 07/24/24 08:00 07/30/24 23:16 Methylprednisolone Sod Succi 125 Mg/2 Ml Vial IV 60 mg Q8HR ROSY Administration Metoprolol Succinate 12.5 mg 07/30/24 16:45 07/30/24 17:28 Metoprolol Succinate (Er) 25 Mg Tab.Er.24h PO 12.5 mg DAILY ROSY Administration Naloxone HCl 0.2 mg 07/23/24 20:54 Naloxone 0.4 Mg/Ml 1 Ml Vial IV Q2M PRN Opioid Reversal Nicotine 1 patch 07/25/24 09:00 07/30/24 08:16 Nicotine 14mg/24hr Patch TRANSDERM 1 patch DAILY ROSY Administration Intake and Output 07/30/24 07/30/24 07/31/24 14:59 22:59 06:59 Intake Total 3000 480 Output Total 650 Balance 3000 -170 Intake: Oral 3000 480 Output: Urine 650 Other: Voiding Method Urinal Urinal Diaper Diaper # Voids 5 # Bowel Movements 1 07/28/24 05:52 07/28/24 05:52
--- NOTE | 2024-07-31 11:14 | P.PN ---
Subjective Progress Note Date: 07/31/24 HISTORY OF PRESENTING ILLNESS: 68-year-old with history of COPD got admitted for acute hypoxic respiratory failure and dyspnea on exertion. He has been managed for COPD exacerbation. Cardiology was consulted because he was noticed to have tachycardia during his hospital stay. Computer read the EKG as junctional tachycardia for which cardiology was consulted. On my review of EKG it appears to be sinus tachycardia. On review of telemetry it appears that patient has intermittent sinus tachycardia and currently is maintaining normal sinus rhythm. This is most likely related to his underlying COPD exacerbation and could be related to his breathing treatments that he is been receiving as a treatment for COPD. He denies any symptoms of chest pain chest pressure palpitations He denies any prior cardiovascular history Any history of stroke, atrial fibrillation. TSH was obtained and in for 0.9, Progress note 07/31/2024 Patient seen and examined at bedside this a.m. BP 130/69, heart rate 78 bpm Telemetry shows normal sinus rhythm with no concerns of arrhythmias at this time Denies any chest pain chest pressure still has wheezing, on supplemental oxygen. PHYSICAL EXAMINATION: Neck: Brisk carotid upstroke, no jugular venous distention. Lungs: Wheezing in bilateral lung chapman with diminished air entry bilateral lower lung chapman Heart: Regular rate and rhythm, S1-S2, , no murmur or rub. Abdomen: Soft nontender, positive bowel sounds. Extremities: No edema, intact distal pulses. Neuro: Alert, oritented, no focal deficits. Detailed neuro exam was not performed. ASSESSMENT: # Sinus tachycardia, likely physiological, currently resolved # Acute COPD exacerbation # Acute on chronic hypoxic respiratory failure due to COPD exacerbation # [id number] smoking history, quit 5 years ago # Debility and frailty with generalized weakness # Cachexia PLAN: Obtain HbA1c, lipid panel Obtain echocardiogram If both are normal, consider outpatient ischemic evaluation considering his intermediate to high pretest probability for CAD Objective - Vital Signs Vital signs: Vital Signs Temp 97.9 F 07/31/24 07:15 Pulse 82 07/31/24 08:17 Resp 16 07/31/24 08:00 BP 130/69 07/31/24 07:15 Pulse Ox 97 07/31/24 08:03 FiO2 40 07/23/24 19:48 Intake & Output 07/30/24 07/31/24 07/31/24 18:59 06:59 18:59 Intake Total 3480 780 960 Output Total 650 Balance 3480 130 960 Intake: Oral 3480 780 960 Output: Urine 650 Other: Voiding Method Urinal Urinal Urinal Diaper Diaper Diaper # Voids 5 1 # Bowel Movements 1 - Labs CBC & Chem 7: 07/28/24 05:52 07/28/24 05:52
--- NOTE | 2024-07-31 11:44 | P.PN ---
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. He does have a history of severe oxygen dependent chronic obstructive pulmonary disease and was following with a seasoner hand there. He was maintained on Breo, Incruse, albuterol in the outpatient setting. He has smoked for over 50 years but quit 5 years ago. He is on no other home medications. He presented here to the emergency room yesterday with a 2 to 3-day history of increasing shortness of breath, cough and congestion. He initially was quite hypoxemic requiring BiPAP 10/5 and 40% FiO2. White count 5.3. Hemoglobin 13.5. Platelets 220. Sodium 131. Potassium 4.7. Bicarb 20. BUN 17. Creatinine 0.68. Glucose 136. Viral screen was negative. Troponin negative. proBNP 1370. Chest x-ray shows no acute cardiopulmonary process. Evidence of COPD. He is seen today in consultation in the emergency department. He is currently sitting up on a stretcher. Awake and alert. He is dyspneic with conversation. Dyspneic with minimal exertion. Sitting in a tripod position. Currently on oxygen at 2 L/min per nasal cannula. He is afe brile. Hemodynamically stable. On 07/25/2024, the patient is being seen for a follow-up. The patient is in the intensive care unit for an acute COPD exacerbation and acute on top of chronic hypoxic respiratory failure. This morning, the patient is calm and comfortable. She is on 2 L of oxygen by nasal cannula. She remains on bronchodilators. She remains on IV Solu-Medrol 60 mg every 8 hours. She is also on a combination of Perforomist and Pulmicort nebulized treatments twice a day. Less short of breath. Clinically improving. No new complaints although the past 24 hours. No signs of any CO2 narcosis. The white cell count of 7.3 with a heme of 12.3 and a platelet count of 186. BUN is 18 with a creatinine of 0.55 and a sodium levels at 130 and a potassium level is at 3.7. Denies having any other specific complaints otherwise for now. On 07/26/2024, the patient is being seen for a follow-up. Doing well. Less bronchospastic and wheezy compared to yesterday, remains on 3 L of oxygen by nasal cannula with a pulse ox of 98%. Remains on DuoNeb updrafts. Remains on a combination of Perforomist and Pulmicort nebulized treatment twice a day and IV Solu-Medrol 60 mg every 6 hours. IV fluids are still running at 75 cc an hour. No new labs are available from today. No altered mentation. No chest pain. Continues to have some limited cough and congestion. Significantly weak and debilitated. On 07/28/2024, the patient is still complaining of shortness of breath. He cont inues to be bronchospastic and wheezy. No major improvement since yesterday. He still on oxygen 3 L/min nasal cannula. Remains on bronchodilators. Remains on steroids.Will be done for him to see strength with Jamsine Hodge he is new complaints otherwise for now. No altered mentation. No other no new labs are available from today. Treatment remains unchanged. He remains on IV Solu-Medrol 60 mg every 6 hours. DuoNeb updrafts. Perforomist and Pulmicort nebulized treatments twice a day. On 07/28/2024, the patient is being seen for a follow-up. Remains on 3 Suboxone by nasal cannula. Still having some cough congestion chest x-ray or wheeze. Remains on bronchodilators and steroids. He is on IV Solu-Medrol 60 mg every 6 hours. No other significant events overnight. The white cell count is at 4.2 regular 12.6 and a platelet count of 177. Electrolytes are all within normal limits. Serum bicarbonate 34. Potassium level is at 4.2. Magnesium is at 2.0. 07/29/2024, the patient reports some improvement in his shortness of breath. Seems to be less bronchospastic and wheezy. Remains on 3 days of oxygen by nasal cannula. He remains on bronchodilators and IV Solu-Medrol. I am going to keep the IV Solu-Medrol for another 24 hours. He denies having specific complaints. No chest pain. No altered mentation. No C. No hemoptysis. 07/30/2024, the patient reports slow but ongoing improvement. He is able to sit up in a chair. Mobility is limited. Exercise capacity is also limited due to his advanced COPD. No worsening shortness of breath. Remains on 2 L of oxygen by nasal cannula. Remains on bronchodilators. Remains on steroids. No new labs are available from today. No altered mentation. No chest pain. Tolerating diet. 07/31/2024, the patient is stable. No new complaints. Remains on a combination of bronchodilators and steroids. Able to sit up in the chair. Chronically debilitated and weak. No new complaints otherwise for now. No cardiac arrhythmias. Objective - Vital Signs Vital signs: Vital Signs Temp 97.9 F 07/31/24 07:15 Pulse 82 07/31/24 08:17 Resp 16 07/31/24 07:15 BP 130/69 07/31/24 07:15 Pulse Ox 97 07/31/24 08:03 FiO2 40 07/23/24 19:48 Intake & Output 07/30/24 07/31/24 07/31/24 18:59 06:59 18:59 Intake Total 3480 780 960 Output Total 650 Balance 3480 130 960 Intake: Oral 3480 780 960 Output: Urine 650 Other: Voiding Method Urinal Urinal Diaper Diaper # Voids 5 1 # Bowel Movements 1 - Exam GENERAL EXAM: Alert, pleasant, very thin 68-year-old male, appears older than stated age, on 2 L nasal cannula, fairly comfortable in no apparent distress. HEAD: Normocephalic. EYES: Normal reaction of pupils, equal size. NOSE: Clear with pink turbinates. THROAT: No erythema or exudates. NECK: No masses, no JVD. CHEST: No chest wall deformity. LUNGS: Equal air entry with bilateral scattered rhonchi, wheezing, diminished. CVS: S1 and S2 normal with no audible murmur, regular rhythm. ABDOMEN: No hepatosplenomegaly, normal bowel sounds, no guarding or rigidity. SPINE: No scoliosis or deformity SKIN: No rashes CENTRAL NERVOUS SYSTEM: No focal deficits, tone is normal in all 4 extremities. EXTREMITIES: There is no peripheral edema. No clubbing, no cyanosis. Peripheral pulses are intact. - Labs CBC & Chem 7: 07/28/24 05:52 07/28/24 05:52 Assessment and Plan Plan: Acute on chronic hypoxemic respiratory failure secondary to an acute exacerbation of chronic obstructive pulmonary disease, currently off BiPAP and the patient is on 3 L of O2 nasal cannula, clinically stable Acute COPD exacerbation, continues to improve slowly Acute on chronic shortness of breath, improving History of oxygen dependent chronic obstructive pulmonary disease maintained on oxygen at 3 L/min per nasal cannula History of 50 years chronic tobacco dependence however quit about 5 years ago Recently moved here from [facility], no health care providers obtained thus far Profound weakness and debility Plan: Will continue the same treatment for now. No changes. Continue IV Solu-Medrol. Patient was transferred out of the intensive care unit and the patient is curre ntly on the medical floor. Currently on 2 liters of oxygen nasal cannula Patient currently off the BiPAP Continue DuoNeb inhalations Continue Pulmicort and Perforomist inhalations Continue Solu-Medrol 60 mg every 8 hours and switch this patient to a prednisone burst taper at time of discharge Heparin for DVT prophylaxis Will follow Will need ECF upon discharge
[2024-07-31 11:47] LABS: Chol/HDL Ratio 1.73 Ratio; LDL Cholesterol,Calculated 56.6 mg/dL (0.0-131.0); VLDL Calculation 16.38 mg/dL (5.00-40.00)
--- NOTE | 2024-07-31 13:20 | P.PN ---
Subjective Progress Note Date: 07/31/24 68-year-old male patient presents to the ED by ambulance complaining of having progressive dyspnea over the past week and a half or so. Patient has a history of COPD, and he reports being on 2 to 4 L of home O2. 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 Patient states that he has been using his albuterol inhaler without much relief. Patient admits to having a productive cough. EMS reports giving the patient a single DuoNeb treatment en route to the ED. EMS reports that the patient did not tolerate their attempt to put the patient on CPAP. Patient denies having any pain, fever or chills, headache, focal neuro deficit, chest pain, hemoptysis, palpitations, dizziness, abdominal pain, nausea or vomiting, bloody or melanotic stool, dysuria or urinary symptoms, decreased urine output, leg or calf swelling or pain, or any other symptoms or complaints. Patient states that he is a former smoker. Patient denies any illicit drug use. Blood work completed in ED reveals a WBC of 12.6, hemoglobin of 16.3 and platelet count of 262, sodium 129, potassium 4.8, BUNs/creatinine of 13/0.61 troponin of less than 0.012, BNP of 1370, lactic acid of 3.0 Viral screen is negative for influenza, RSV and COVID-19 Chest x-ray is negative for any acute cardiopulmonary process 07/25--patient was seen and examined today. Continue complain of shortness of breath, productive cough. On 2 L oxygen. Remains on bronchodilators, IV Solu- Medrol. WBC 7.3, hemoglobin 12.3, platelet 186. BMP unremarkable, sodium 130. Potassium 3.7. Pulmonary following. 07/26--patient was seen and examined today. Continue complain of productive cough, shortness of breath. Afebrile, heart rate 107, respiratory 22, blood pressure 131/73, saturating 98% 3 L. Remains on DuoNeb, Perforomist and Pulmicort, IV Solu-Medrol. Pulmonary following. 07/27--patient was seen and examined today. No issues overnight. Afebrile, heart rate 104, respiratory rate 18, blood pressure 134/69, saturating 99% on 3 L. Continue complain of shortness of breath, worse with exertion, cough. Continues on inhaler/bronchodilator protocol, on Solu-Medrol IV. Pulmonary following. 07/28--patient was seen and examined today. Remains on 3 to oxygen. Continues complain of shortness of breath, chest tightness, cough, congestion, wheezing, shortness of breath worse with ambulation. Remains on DuoNeb, Pulmicort, IV So cindy-Medrol. Pulmonary following. 07/29--patient was seen and examined today. Patient is afebrile, heart rate 92, respiratory rate 15, blood pressure 103/65, saturating 96% on 3 L. WBC 4.2, hemoglobin 12.6, platelet 177. BMP unremarkable. Continue complain of shortness of breath, wheezing, cough, congestion. Telemetry showed accelerated junctional rhythm with heart rate going up to 160s transiently. Patient is symptomatic. Will continue monitor with telemetry, cardiology consulted. Alyssia chauhan uses 3 L oxygen at home, has a concentrator, patient reported that he has been evicted from his apartment, concentrators in the stool resumed, patient is calling his friend to find a place to stay. 07/30. Patient seen and examined. States breathing is improved. Gets short of breath on exertion. Vital signs this morning showed temperature 98.1, heart rate 85, respirations 16, blood pressure 111/63, currently on 3 L of oxygen; 07/31. Patient seen and examined. States he feels much better. Breathing is improving. Denies any chest pain. No nausea or vomiting REVIEW OF SYSTEMS: CONSTITUTIONAL: No fever, no malaise,. CARDIOVASCULAR: No chest pain, no palpitations, no syncope. PULMONARY: As mentioned above GASTROINTESTINAL: No diarrhea, no nausea, no vomiting, no abdominal pain. NEUROLOGICAL: No headaches, no weakness, PHYSICAL EXAMINATION: GENERAL: The patient is alert and oriented x3, not in any acute distress. Ill looking HEENT: Pupils are round and equally reacting to light. EOMI. No scleral icterus. No conjunctival pallor. Normocephalic, atraumatic. No pharyngeal erythema. No thyromegaly. CARDIOVASCULAR: S1 and S2 present. No murmurs, rubs, or gallops. PULMONARY: Coarse breath sounds bilaterally, no wheezing or crackles. ABDOMEN: Soft, nontender, nondistended, normoactive bowel sounds. No palpable organomegaly. MUSCULOSKELETAL: No joint swelling or deformity. EXTREMITIES: No cyanosis, clubbing, or pedal edema. NEUROLOGICAL: Gross neurological examination did not reveal any focal deficits. SKIN: No rashes. Assessment and plan Acute on chronic hypoxic respiratory failure: Acute COPD exacerbation: 2 L oxygen at baseline Former tobacco use: 50 years history, quit 5 years ago Weakness and debility: Presents for shortness of breath, chest x-ray negative for any acute process, admitted for acute COPD exacerbation Required BiPAP initially DuoNebs, Pulmicort, Perforomist inhalers Solu-Medrol Wean off oxygen as tolerated keep oxygen saturation above 90% Pulmonary consulted and following Tachycardia: Telemetry monitoring Monitor electrolyte 2D echo ordered Cardiology following Severe PCM: Nutrition consult, supplements Debility: Weakness: PT/OT consulted evaluate for ECF Case management consult for help with outpatient resources. Moved from [place], evicted from his apartment, oxygen concentrator at storage, patient going to call friend to find a place to stay. Labs and medication were reviewed.. Continue same treatment. Continue with sym ptomatic treatment. Resume home medication. Monitor labs and vitals. DVT and GI prophylaxis. Further recommendations as per clinical course of the patient Dictation was produced using [employer] dictation software. please excuse any grammatical, word or spelling errors. Objective - Vital Signs Vital signs: Vital Signs Temp 98.6 F 07/31/24 11:45 Pulse 75 07/31/24 11:57 Resp 16 07/31/24 11:45 BP 118/56 07/31/24 11:45 Pulse Ox 98 07/31/24 11:45 FiO2 40 07/23/24 19:48 Intake & Output 07/30/24 07/31/24 07/31/24 18:59 06:59 18:59 Intake Total 3480 780 1440 Output Total 650 Balance 3480 130 1440 Intake: Oral 3480 780 1440 Output: Urine 650 Other: Voiding Method Urinal Urinal Urinal Diaper Diaper Diaper # Voids 5 1 # Bowel Movements 1 - Labs CBC & Chem 7: 07/28/24 05:52 07/28/24 05:52 Labs: Abnormal Lab Results - Last 24 Hours (Table) 07/30/24 Range/Units 16:43 HDL Cholesterol 100.00 H (40.00-60.00) mg/dL
[2024-08-01 08:20] LABS: Basophils # (A) 0 X 10*3/uL (0.00-0.10); Basophils % (A) 0 %; Eosinophils # (A) 0 X 10*3/uL (0.04-0.35); Eosinophils % (A) 0 %; HCT 36.3 % (39.6-50.0); HGB 12.2 g/dL (13.0-17.0); Lymphocytes # (A) 0.42 X 10*3/uL (0.90-5.00); Lymphocytes % (A) 6.9 %; MCH 33.2 pg (27.0-32.0); MCHC 33.6 g/dL (32.0-37.0); MCV 98.6 FL (80.0-97.0); Monocytes # (A) 0.41 X 10*3/uL (0.20-1.00); Monocytes % (A) 6.7 %; NRBC Per 100 WBC 0 X 10*3/uL (0.00-0.01); Neutrophils # (A) 5.22 X 10*3/uL (1.80-7.70); Neutrophils % (A) 85.7 %; Platelet Count 219 X 10*3/uL (140-440); RBC 3.68 X 10*6/uL (4.40-5.60); RDW 13.9 % (11.5-14.5); WBC 6.09 X 10*3/uL (4.50-10.00)
[2024-08-01 08:45] LABS: ALT 22 U/L (10-49); AST 20 U/L (14-35); Albumin 3.1 g/dL (3.8-4.9); Albumin/Globulin Ratio 1.55 Ratio (1.60-3.17); Alkaline Phosphatase 78 U/L (41-126); Blood Urea Nitrogen 27.6 mg/dL (9.0-27.0); Calcium 8.4 mg/dL (8.7-10.3); Carbon Dioxide 30.9 mmol/L (21.6-31.8); Chloride 97 mmol/L (96-109); Glucose 153 mg/dL (70-110); Potassium 4.7 mmol/L (3.5-5.5); Sodium 133 mmol/L (135-145); Total Bilirubin 0.2 mg/dL (0.3-1.2); Total Protein 5.1 g/dL (6.2-8.2)
--- NOTE | 2024-08-01 11:03 | P.PN ---
Subjective HISTORY OF PRESENT ILLNESS: 68-year-old with history of COPD got admitted for acute hypoxic respiratory failure and dyspnea on exertion. He has been managed for COPD exacerbation. Cardiology was consulted because he was noticed to have tachycardia during his hospital stay. Computer read the EKG as junctional tachycardia for which cardiology was consulted. On my review of EKG it appears to be sinus tachycardia. On review of telemetry it appears that patient has intermittent sinus tachycardia and currently is maintaining normal sinus rhythm. This is most likely related to his underlying COPD exacerbation and could be related to his breathing treatments that he is been receiving as a treatment for COPD. He denies any symptoms of chest pain chest pressure palpitations He denies any prior cardiovascular history Any history of stroke, atrial fibrillation. TSH was obtained and in for 0.9, Progress note 07/31/2024 Patient seen and examined at bedside this a.m. BP 130/69, heart rate 78 bpm Telemetry shows normal sinus rhythm with no concerns of arrhythmias at this time Denies any chest pain chest pressure still has wheezing, on supplemental oxygen. 08/01/2024 Patient examined this morning at the bedside. Patient currently denies chest pain or pressure. He currently denies any shortness of breath. He does report wearing O2 as needed. Telemetry reveals sinus mechanism with a heart rate in the 80s. No arrhythmias noted. Vital signs are stable. PHYSICAL EXAM: VITAL SIGNS: Reviewed. GENERAL: Well-developed in no acute distress. NECK: Supple. No JVD or thyromegaly LUNGS: Respirations even and unlabored. Lungs essentially clear to auscultation bilaterally. HEART: Regular rate and rhythm. S1 and S2 heard. EXTREMITIES: Normal range of motion. No clubbing or cyanosis. Peripheral pulses intact. No lower extremity edema ASSESSMENT: # Sinus tachycardia, likely physiological, currently resolved # Acute COPD exacerbation # Acute on chronic hypoxic respiratory failure due to COPD exacerbation # [id number] smoking history, quit 5 years ago # Debility and frailty with generalized weakness # Cachexia PLAN: Continue current cardiac medications 2D echo pending. If unremarkable, no further inpatient recommendations from a cardiac standpoint Nurse practitioner note has been reviewed by physician. Signing provider agrees with the documented findings, assessment, and plan of care documented by DIVIDEND CLERK as a scribe. Objective - Vital Signs Vital signs: Vital Signs Temp 97.4 F L 08/01/24 07:38 Pulse 88 08/01/24 08:47 Resp 17 04/07/25 07:38 BP 128/77 08/01/24 07:38 Pulse Ox 94 L 08/01/24 07:38 FiO2 40 07/23/24 19:48 Intake & Output 07/31/24 08/01/24 08/01/24 18:59 06:59 18:59 Intake Total 3240 590 236 Output Total 700 Balance 3240 -110 236 Intake: Oral 3240 590 236 Output: Urine 700 Other: Voiding Method Urinal Urinal Urinal Diaper Diaper Diaper # Voids 5 # Bowel Movements 1 - Labs CBC & Chem 7: 08/01/24 04:26 08/01/24 04:26 Labs: Abnormal Lab Results - Last 24 Hours (Table) 07/30/24 08/01/24 08/01/24 Range/Units 16:43 04:26 04:26 RBC 3.68 L (4.40-5.60) X 10*6/uL Hgb 12.2 L (13.0-17.0) g/dL Hct 36.3 L (39.6-50.0) % MCV 98.6 H (80.0-97.0) FL MCH 33.2 H (27.0-32.0) pg Lymphocytes # 0.42 L (0.90-5.00) X 10*3/uL Eosinophils # 0 L (0.04-0.35) X 10*3/uL Sodium 133 L (135-145) mmol/L BUN 27.6 H (9.0-27.0) mg/dL BUN/Creatinine Ratio 46.00 H (12.00-20.00) Ratio Glucose 153 H (70-110) mg/dL Calcium 8.4 L (8.7-10.3) mg/dL Total Bilirubin 0.2 L (0.3-1.2) mg/dL Total Protein 5.1 L (6.2-8.2) g/dL Albumin 3.1 L (3.8-4.9) g/dL Albumin/Globulin Ratio 1.55 L (1.60-3.17) Ratio HDL Cholesterol 100.00 H (40.00-60.00) mg/dL
--- NOTE | 2024-08-01 12:32 | CA ---
Transthoracic Echo Report Name: Stephon Polo Age: 68 Gender: M : 1955 Exam Date: 08/01/2024 08:56 Exam Location: [facility] Ht (in): 62 Wt (lb): 160 Ordering Physician: Chapo Barnes MD ([id number]) Attending/Referring Phys: Botany Technician Ca Vidal RDCS Procedure CPT: Indications: cardiomyopathy Cardiac Hx: Technical Quality: 82 Contrast 1: Total Dose (mL): Contrast 2: Total Dose (mL): MEASUREMENTS (Male / Female) Normal Values 2D ECHO LV Diastolic Diameter PLAX 4.6 cm 4.2 - 5.9 / 3.9 - 5.3 cm LV Systolic Diameter PLAX 3.4 cm IVS Diastolic Thickness 0.8 cm 0.6 - 1.0 / 0.6 - 0.9 cm LVPW Diastolic Thickness 1.0 cm 0.6 - 1.0 / 0.6 - 0.9 cm LV Relative Wall Thickness 0.4 RV Internal Dim ED PLAX 3.3 cm LA Systolic Diameter LX 3.2 cm 3.0 - 4.0 / 2.7 - 3.8 cm LV Diastolic Volume MOD BP 77.4 cm??? 67 - 155 / 56 - 104 cm??? LV Systolic Volume MOD BP 31.5 cm??? 22 - 58 / 19 - 49 cm??? LV Ejection Fraction MOD BP 59.3 % >= 55 % LV Diastolic Volume MOD 4C 79.7 cm??? LV Systolic Volume MOD 4C 37.4 cm??? LV Ejection Fraction MOD 4C 53.1 % LV Diastolic Length 4C 7.0 cm LV Systolic Length 4C 6.7 cm LV Diastolic Volume MOD 2C 67.8 cm??? LV Systolic Volume MOD 2C 22.7 cm??? LV Ejection Fraction MOD 2C 66.5 % LV Diastolic Length 2C 7.8 cm LV Systolic Length 2C 5.6 cm M-MODE Aortic Root Diameter MM 3.5 cm DOPPLER Mitral E Point Velocity 106.1 cm/s Mitral A Point Velocity 104.5 cm/s Mitral E to A Ratio 1.0 MV Deceleration Time 193.9 ms MV E' Velocity 9.1 cm/s Mitral E to MV E' Ratio 11.7 TR Peak Velocity 282.2 cm/s TR Peak Gradient 31.8 mmHg Right Ventricular Systolic Press 41.8 mmHg FINDINGS Left Ventricle Left ventricular ejection fraction is estimated at 55-60 %. Left ventricular cavity size normal. Left ventricular wall thickness normal. Normal left ventricular wall motion. Right Ventricle Right ventricular dilatation. Mild pulmonary hypertension. Right Atrium Normal right atrial size. No right atrial thrombus or mass seen. Left Atrium Normal left atrial size. No left atrial thrombus or mass present. Mitral Valve Structurally normal mitral valve. Trace mitral regurgitation. No evidence for mitral valve prolapse. No mitral stenosis. Aortic Valve Trileaflet aortic valve. No aortic valve stenosis or regurgitation. Tricuspid Valve Structurally normal tricuspid valve. Mild tricuspid regurgitation. Pulmonic Valve Structurally normal pulmonic valve. No pulmonic regurgitation. Pericardium No pericardial effusion. Aorta Normal size aortic root and proximal ascending aorta. CONCLUSIONS Normal biventricular systolic function No significant valvular abnormalities noted No pericardial effusion Mild pulmonary hypertension Previewed by: Dr. Gus Phillips MD (Electronically Signed) Final Date: 01 August 2024 12:31
--- NOTE | 2024-08-01 13:00 | P.DS ---
Providers Date of admission: 07/23/24 20:57 Expected date of discharge: 08/01/24 Attending physician: Santos Crawford MD Consults: 07/23/24 20:54 Consult Physician Urgent Consulting Provider: Ganga Mina Consult Reason/Comments: COPD exacerbation Do you want consulting provider notified?: Yes 07/29/24 13:27 Consult Physician Routine Consulting Provider: Chapo Barnes Consult Reason/Comments: Tachycardia, EKG showing accelerated junctional rhythm. Do you want consulting provider notified?: Yes Primary care physician: Stated None Hospital Course: Discharge diagnoses; Acute on chronic hypoxic respiratory failure: Acute COPD exacerbation: 2 L oxygen at baseline Former tobacco use: 50 years history, quit 5 years ago Weakness and debility: Presents for shortness of breath, chest x-ray negative for any acute process, admitted for acute COPD exacerbation Required BiPAP initially DuoNebs, Pulmicort, Perforomist inhalers Solu-Medrol Wean off oxygen as tolerated keep oxygen saturation above 90% Pulmonary consulted and following 08/01. Being discharged on tapering dose of prednisone. Outpatient follow-up with pulmonary Tachycardia: outpatient follow-up with cardiologyg Severe PCM: Nutrition consult, supplements Debility: Weakness: Hospital course; 68-year-old male patient presents to the ED by ambulance complaining of having progressive dyspnea over the past week and a half or so. Patient has a history of COPD, and he reports being on 2 to 4 L of home O2. 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 Patient states that he has been using his albuterol inhaler without much relief. Patient admits to having a productive cough. EMS reports giving the patient a single DuoNeb treatment en route to the ED. EMS reports that the patient did not tolerate their attempt to put the patient on CPAP. Patient denies having any pain, fever or chills, headache, focal neuro deficit, chest pain, hemoptysis, palpitations, dizziness, abdominal pain, nausea or vomiting, bloody or melanotic stool, dysuria or urinary symptoms, decreased urine output, leg or calf swelling or pain, or any other symptoms or complaints. Patient states that he is a former smoker. Patient denies any illicit drug use. Blood work completed in ED reveals a WBC of 12.6, hemoglobin of 16.3 and platelet count of 262, sodium 129, potassium 4.8, BUNs/creatinine of 13/0.61 troponin of less than 0.012, BNP of 1370, lactic acid of 3.0 Viral screen is negative for influenza, RSV and COVID-19 Chest x-ray is negative for any acute cardiopulmonary process 07/25--patient was seen and examined today. Continue complain of shortness of breath, productive cough. On 2 L oxygen. Remains on bronchodilators, IV Solu- Medrol. WBC 7.3, hemoglobin 12.3, platelet 186. BMP unremarkable, sodium 130. Potassium 3.7. Pulmonary following. 07/26--patient was seen and examined today. Continue complain of productive cough, shortness of breath. Afebrile, heart rate 107, respiratory 22, blood pressure 131/73, saturating 98% 3 L. Remains on DuoNeb, Perforomist and Pulmicort, IV Solu-Medrol. Pulmonary following. 07/27--patient was seen and examined today. No issues overnight. Afebrile, heart rate 104, respiratory rate 18, blood pressure 134/69, saturating 99% on 3 L. Continue complain of shortness of breath, worse with exertion, cough. Continues on inhaler/bronchodilator protocol, on Solu-Medrol IV. Pulmonary following. 07/28--patient was seen and examined today. Remains on 3 to oxygen. Continues complain of shortness of breath, chest tightness, cough, congestion, wheezing, shortness of breath worse with ambulation. Remains on DuoNeb, Pulmicort, IV Solu-Medrol. Pulmonary following. 07/29--patient was seen and examined today. Patient is afebrile, heart rate 92, respiratory rate 15, blood pressure 103/65, saturating 96% on 3 L. WBC 4.2, hemoglobin 12.6, platelet 177. BMP unremarkable. Continue complain of shortness of breath, wheezing, cough, congestion. Telemetry showed accelerated junctional rhythm with heart rate going up to 160s transiently. Patient is symptomatic. Will continue monitor with telemetry, cardiology consulted. Patient uses 3 L oxygen at home, has a concentrator, patient reported that he has been evicted from his apartment, concentrators in the stool resumed, patient is calling his friend to find a place to stay. 07/30. Patient seen and examined. States breathing is improved. Gets short of breath on exertion. Vital signs this morning showed temperature 98.1, heart rate 85, respirations 16, blood pressure 111/63, currently on 3 L of oxygen; 07/31. Patient seen and examined. States he feels much better. Breathing is improving. Denies any chest pain. No nausea or vomiting PHYSICAL EXAMINATION: GENERAL: The patient is alert and oriented x3, ill looking, cachectic HEENT: Pupils are round and equally reacting to light. EOMI. No scleral icterus. No conjunctival pallor. Normocephalic, atraumatic. No pharyngeal erythema. No thyromegaly. CARDIOVASCULAR: S1 and S2 present. No murmurs, rubs, or gallops. PULMONARY: Coarse breath sound bilateral, no wheezing or crackles. ABDOMEN: Soft, nontender, nondistended, normoactive bowel sounds. No palpable organomegaly. MUSCULOSKELETAL: No joint swelling or deformity. EXTREMITIES: No cyanosis, clubbing, or pedal edema. NEUROLOGICAL: Gross neurological examination did not reveal any focal deficits. SKIN: No rashes. Dictation was produced using [employer] dictation software. please excuse any grammatical, word or spelling errors. Patient Condition at Discharge: Stable Plan - Discharge Summary Discharge Rx Participant: Yes New Discharge Prescriptions: New Metoprolol Succinate (ER) [Toprol XL] 12.5 mg PO DAILY 30 Days #30 tab predniSONE 10 mg PO DAILY 8 Days #20 tab Budesonide/Formoterol Fumarate [Symbicort 80-4.5 Mcg Inhaler] 2 puff INHAL ATION BID #10.2 gm Continue Albuterol Inhaler [Ventolin Hfa Inhaler] 2 puff INHALATION RT-QID PRN PRN Reason: Shortness Of Breath Discharge Medication List Albuterol Inhaler [Ventolin Hfa Inhaler] 2 puff INHALATION RT-QID PRN 07/24/24 [History] Budesonide/Formoterol Fumarate [Symbicort 80-4.5 Mcg Inhaler] 2 puff INHALATION BID #10.2 gm 08/01/24 [Rx] Metoprolol Succinate (ER) [Toprol XL] 12.5 mg PO DAILY 30 Days #30 tab 08/01/24 [Rx] predniSONE 10 mg PO DAILY 8 Days #20 tab 08/01/24 [Rx] Follow up Appointment(s)/Referral(s): None,Stated [Primary Care Provider] - 1-2 days Discharge/Stand Alone Forms: [facility] Pamphlet, Who Do I Call?, Community Resources, Area PCPs
[2024-08-01 13:14] VITALS: BP 144/67; RESP 18; TEMP 98.1
--- NOTE | 2024-08-01 14:20 | P.PN ---
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 He does have a history of severe oxygen dependent chronic obstructive pulmonary disease and was following with a food trades assistants there. He was maintained on Breo, Incruse, albuterol in the outpatient setting. He has smoked for over 50 years but quit 5 years ago. He is on no other home medications. He presented here to the emergency room yesterday with a 2 to 3-day history of increasing shortness of breath, cough and congestion. He initially was quite hypoxemic requiring BiPAP 10/5 and 40% FiO2. White count 5.3. Hemoglobin 13.5. Platelets 220. Sodium 131. Potassium 4.7. Bicarb 20. BUN 17. Creatinine 0.68. Glucose 136. Viral screen was negative. Troponin negative. proBNP 1370. Chest x-ray shows no acute cardiopulmonary process. Evidence of COPD. He is seen today in consultation in the emergency department. He is currently sitting up on a stretcher. Awake and alert. He is dyspneic with conversation. Dyspneic with minimal exertion. Sitting in a tripo d position. Currently on oxygen at 2 L/min per nasal cannula. He is afebrile. Hemodynamically stable. On 07/25/2024, the patient is being seen for a follow-up. The patient is in the intensive care unit for an acute COPD exacerbation and acute on top of chronic hypoxic respiratory failure. This morning, the patient is calm and comfortable. She is on 2 L of oxygen by nasal cannula. She remains on bronchodilators. She remains on IV Solu-Medrol 60 mg every 8 hours. She is also on a combination of Perforomist and Pulmicort nebulized treatments twice a day. Less short of breath. Clinically improving. No new complaints although the past 24 hours. No signs of any CO2 narcosis. The white cell count of 7.3 with a heme of 12.3 and a platelet count of 186. BUN is 18 with a creatinine of 0.55 and a sodium levels at 130 and a potassium level is at 3.7. Denies having any other specific complaints otherwise for now. On 07/26/2024, the patient is being seen for a follow-up. Doing well. Less bronchospastic and wheezy compared to yesterday, remains on 3 L of oxygen by nasal cannula with a pulse ox of 98%. Remains on DuoNeb updrafts. Remains on a combination of Perforomist and Pulmicort nebulized treatment twice a day and IV Solu-Medrol 60 mg every 6 hours. IV fluids are still running at 75 cc an hour. No new labs are available from today. No altered mentation. No chest pain. Continues to have some limited cough and congestion. Significantly weak and debilitated. On 07/28/2024, the patient is still complaining of shortness of breath. He continues to be bronchospastic and wheezy. No major improvement since yesterday. He still on oxygen 3 L/min nasal cannula. Remains on bronchodilators. Remains on steroids.Will be done for him to see strength with Jasmine Hodge he is new complaints otherwise for now. No altered mentation. No other no new labs are available from today. Treatment remains unchanged. He remains on IV Solu-Medrol 60 mg every 6 hours. DuoNeb updrafts. Perforomist and Pulmicort nebulized treatments twice a day. On 07/28/2024, the patient is being seen for a follow-up. Remains on 3 Suboxone by nasal cannula. Still having some cough congestion chest x-ray or wheeze. Remains on bronchodilators and steroids. He is on IV Solu-Medrol 60 mg every 6 hours. No other significant events overnight. The white cell count is at 4.2 regular 12.6 and a platelet count of 177. Electrolytes are all within normal limits. Serum bicarbonate 34. Potassium level is at 4.2. Magnesium is at 2.0. 07/29/2024, the patient reports some improvement in his shortness of breath. Seems to be less bronchospastic and wheezy. Remains on 3 days of oxygen by nasal cannula. He remains on bronchodilators and IV Solu-Medrol. I am going to keep the IV Solu-Medrol for another 24 hours. He denies having specific complaints. No chest pain. No altered mentation. No C. No hemoptysis. 07/30/2024, the patient reports slow but ongoing improvement. He is able to sit up in a chair. Mobility is limited. Exercise capacity is also limited due to his advanced COPD. No worsening shortness of breath. Remains on 2 L of oxygen by nasal cannula. Remains on bronchodilators. Remains on steroids. No new labs are available from today. No altered mentation. No chest pain. Tolerating diet. 07/31/2024, the patient is stable. No new complaints. Remains on a combination of bronchodilators and steroids. Able to sit up in the chair. Chronically debilitated and weak. No new complaints otherwise for now. No cardiac arrhythmias. The patient is seen today August 01, 2024 in follow-up on the regular medical floor. He is currently sitting up in bed. Awake and alert in no acute distress. Breathing easier today compared to yesterday. He is maintaining O2 saturations in the 90s on 3 L/min per nasal cannula. He is afebrile. Hemodynamically stable. He remains on DuoNeb inhalations, Pulmicort and Perforomist inhalations, Solu-Medrol. NicoDerm patch in place. Heparin for DVT prophylaxis. White count 6.0. Hemoglobin 12.2. Platelets 219. Sodium 133. Potassium 4.7. Bicarb 31. BUN 28. Creatinine 0.6. Glucose 153. Objective - Vital Signs Vital signs: Vital Signs Temp 98.1 F 08/01/24 12:58 Pulse 85 08/01/24 12:58 Resp 18 08/01/24 12:58 BP 144/67 08/01/24 12:58 Pulse Ox 96 08/01/24 12:58 FiO2 40 07/23/24 19:48 Intake & Output 07/31/24 08/01/24 08/01/24 18:59 06:59 18:59 Intake Total 3240 590 236 Output Total 700 Balance 3240 -110 236 Intake: Oral 3240 590 236 Output: Urine 700 Other: Voiding Method Urinal Urinal Urinal Diaper Diaper Diaper # Voids 5 # Bowel Movements 1 - Exam GENERAL EXAM: Alert, pleasant, thin 68-year-old male, appears older than stated age, on 3 L nasal cannula, comfortable in no apparent distress. HEAD: Normocephalic. EYES: Normal reaction of pupils, equal size. NOSE: Clear with pink turbinates. THROAT: No erythema or exudates. NECK: No masses, no JVD. CHEST: No chest wall deformity. LUNGS: Equal air entry with scattered rhonchi, diminished. CVS: S1 and S2 normal with no audible murmur, regular rhythm. ABDOMEN: No hepatosplenomegaly, normal bowel sounds, no guarding or rigidity. SPINE: No scoliosis or deformity SKIN: No rashes CENTRAL NERVOUS SYSTEM: No focal deficits, tone is normal in all 4 extremities. EXTREMITIES: There is no peripheral edema. No clubbing, no cyanosis. Peripheral pulses are intact. - Labs CBC & Chem 7: 08/01/24 04:26 08/01/24 04:26 Labs: Abnormal Lab Results - Last 24 Hours (Table) 08/01/24 08/01/24 Range/Units 04:26 04:26 RBC 3.68 L (4.40-5.60) X 10*6/uL Hgb 12.2 L (13.0-17.0) g/dL Hct 36.3 L (39.6-50.0) % MCV 98.6 H (80.0-97.0) FL MCH 33.2 H (27.0-32.0) pg Lymphocytes # 0.42 L (0.90-5.00) X 10*3/uL Eosinophils # 0 L (0.04-0.35) X 10*3/uL Sodium 133 L (135-145) mmol/L BUN 27.6 H (9.0-27.0) mg/dL BUN/Creatinine Ratio 46.00 H (12.00-20.00) Ratio Glucose 153 H (70-110) mg/dL Calcium 8.4 L (8.7-10.3) mg/dL Total Bilirubin 0.2 L (0.3-1.2) mg/dL Total Protein 5.1 L (6.2-8.2) g/dL Albumin 3.1 L (3.8-4.9) g/dL Albumin/Globulin Ratio 1.55 L (1.60-3.17) Ratio Assessment and Plan Assessment: Acute on chronic hypoxemic respiratory failure secondary to an acute exacerbation of chronic obstructive pulmonary disease requiring BiPAP support, proved and on 3 L nasal cannula History of oxygen dependent chronic obstructive pulmonary disease maintained on oxygen at 3 L/min per nasal cannula History of 50 years chronic tobacco dependence however quit about 5 years ago Recently moved here from [facility], no health care providers obtained thus far Plan: The patient was seen and evaluated Labs and medications reviewed Currently on 3 L nasal cannula Plan is for discharge today Continue his home oxygen, nebulizer Continue DuoNeb inhalations Continue Symbicort Complete a prednisone taper Follow-up in our office in 1 week I have personally seen and examined the patient, performed the documentation and the assessment and plan as written. Number of minutes spent on the visit: 10 Dictation was produced using [employer] dictation software. Please excuse any grammatical, word or spelling errors.
[2024-08-01 16:29] VITALS: PULSE 88
== END 2024-08-01 19:32 | disposition home or self-care (01) | DRG 189 ==
LOC: EC 19:05 → 3SCARD 20:57 → 2SICU 07-24 12:09 → 5NMEDONC 07-26 14:04
PROVIDERS: ADMIT Internal Medicine; ATTEND Internal Medicine
PROC: 5A09357 Assistance with Respiratory Ventilation, Less than 24 Consecutive Hours, Continuous Positive Airway Pressure (ICD-10-PCS; principal; 2024-07-23)
DX: J96.21 Acute and chronic respiratory failure with hypoxia (principal); E43 Unspecified severe protein-calorie malnutrition; R64 Cachexia; E87.1 Hypo-osmolality and hyponatremia; I47.19 Other supraventricular tachycardia; Z99.81 Dependence on supplemental oxygen; J44.1 Chronic obstructive pulmonary disease with (acute) exacerbation; Z68.1 Body mass index [BMI] 19.9 or less, adult; E87.5 Hyperkalemia; R79.89 Other specified abnormal findings of blood chemistry; R53.81 Other malaise; Z79.51 Long term (current) use of inhaled steroids; Z87.891 Personal history of nicotine dependence; Z20.822 Contact with and (suspected) exposure to COVID-19; Z28.21 Immunization not carried out because of patient refusal; Z71.3 Dietary counseling and surveillance
CPT/HCPCS: 36415; 71045; 80048; 80053; 80061; 82803; 83036; 83605; 83735; 83880; 84100; 84443; 84484; 85025; 85610; 85730; 87636; 93005; 93306; 94640; 94660; 94760; 96361; 96365; 96366; 96372; 96375; 99291